=== PATIENT | female | born 1965 | race African-American/Black ===

== ENCOUNTER 2019-03-16 17:32 | Observation (INO) ==
[2019-03-16] MEDS ORDERED: CARDIZEM IV ONE (17:50)
[2019-03-16] MEDS ORDERED: CARDIZEM ONE (17:50)
[2019-03-16] MEDS ORDERED: NS 1,000 ML ONE (17:50)
[2019-03-16] MEDS ORDERED: NS 1,000 ML IV ONE ×3 (17:50→22:17)
--- NOTE | 2019-03-16 18:02 | PROVIDER DOCUMENTATION ---
HPI-Syncope/Dizziness - General Chief Complaint: Palpitations Stated Complaint: HEART RATE / BP / UP Time Seen by Provider: 03/16/19 17:59 Source: patient Allergies/Adverse Reactions: Patient Allergies Allergy/AdvReac Type Severity Reaction Status Date / Time metformin Allergy SWELLING Verified 06/26/18 18:27 Home Medications: Home Medication List Medication Instructions Recorded Confirmed Last Taken Type Amlodipine [Norvasc] 10 mg PO DAILY 07/07/14 06/26/18 06/26/18 06:00 History Allopurinol 1 tab PO DAILY 11/19/15 06/26/18 06/26/18 06:00 History Gabapentin 1 tab PO HS 11/19/15 06/26/18 06/26/18 06:00 History Losartan Potassium 1 tab PO DAILY 11/19/15 06/26/18 06/26/18 06:00 History Clonidine HCl 0.3 mg PO DAILY 06/02/18 06/26/18 06/26/18 06:00 History Digoxin 250 microgm PO DAILY 06/02/18 06/26/18 06/26/18 06:00 History Ergocalciferol (Vitamin D2) 50,000 unit PO DIRECTED 06/02/18 06/26/18 06/19/18 History [Vitamin D] Glimepiride 4 mg PO BID 06/02/18 06/26/18 06/26/18 06:00 History Senatobia-3 Fatty Acids/Fish Oil [Fish 1 each PO DAILY 06/02/18 06/26/18 06/26/18 06:00 History Oil 1,000 mg Capsule] Sitagliptin Phosphate [Januvia] 100 mg PO DAILY 06/02/18 06/26/18 06/26/18 06:00 History Hydralazine [Apresoline] 25 mg PO DAILY 06/26/18 06/26/18 06/26/18 06:00 History Omeprazole 1 tab PO DAILY 06/26/18 06/26/18 06/26/18 06:00 History Polyethylene Glycol 3350 [Miralax] 17 gm PO DAILY 06/26/18 06/26/18 06/26/18 06:00 History - History of Present Illness-Syncope/Dizzy Nature of Presenting Problem: pt c/o elevated HR and BP w/ dizziness and weakness onset today [employer]ERK [employer], pt has HX of tachycardia w/ recent lower dose of digoxin. no other sx reported at this time. Prior Episodes: reports: other (pt has chronic SVT) Onset/Duration: reports: just prior to arrival Timing: reports: still present Symptoms prior to episode: reports: lightheaded, racing heart, rapid heart beat Context: reports: felt faint Loss of Consciousness: no loss of consciousness Current Symptoms: reports: weakness, lightheaded, dizzy Recently Seen Here or By Another Healthcare Provider: No - Dizziness Severity in ED: reports: mild Dizziness Related Current/Associated Symptoms: reports: weakness, lightheaded (relieved now after return to NSR with controlled rate) Any recent trauma/injury?: reports: none Modifying Factors: improves with: nothing Review of Systems - Adult - REVIEW OF SYSTEMS - ADULT Constitutional: reports: no symptoms reported Eyes: reports: no symptoms reported Ears, Nose, Mouth & Throat: reports: no symptoms reported Cardiovascular: reports: see HPI Respiratory: reports: no symptoms reported Gastrointestinal: reports: no symptoms reported Genitourinary: reports: no symptoms reported Musculoskeletal: reports: no symptoms reported Integumentary: reports: no symptoms reported Neurological: reports: no symptoms reported Psychiatric: reports: no symptoms reported Endocrine: reports: no symptoms reported Hematologic/Lymphatic: reports: no symptoms reported Allergic/Immunologic: reports: no symptoms reported All Other Systems: Reviewed and Negative Past History - Adult - PAST MEDICAL HISTORY-ADULT Review of Records: reports: Old Records Reviewed, Nursing Assessment Review, Me dications Reviewed Major Childhood Illnesses: reports: denies history Cardiovascular: reports: arrhythmia (SVT), HTN, hyperlipidemia, [place] Respiratory: reports: denies history Gastrointestinal: reports: GERD, GI bleed Obstetrical/Gynecological: reports: denies history Genitourinary: reports: denies history Musculoskeletal: reports: denies history Neurological: reports: denies history Endocrine/Immune: reports: Diabetes Other Conditions: reports: denies history - PRIOR SURGERIES/PROCEDURES Surgical/Procedure History: reports: cholecystectomy, orthopedic (extremity) (left ankle), breast (reduction), other (breast reduction) - IMMUNIZATION STATUS Childhood Immunizations: See Nurse Assessment Flu Vaccine: See Nurse Assessment - FAMILY HISTORY Family History: CAD over 55 yo - SOCIAL HISTORY Smoking: denies Substance Use: none/never Alcohol Use Frequency: never Physical Exam-General - CONSTITUTIONAL General Appearance: appears well, alert, no apparent distress - EYES Eyes: PERRL/EOMI, pink conjunctivae. negative: anisocoria, photophobia, sclera injected - HEAD, EARS, NOSE, MOUTH & THROAT HENMT: normocephalic/atraumatic, moist mucous membranes, normal ENT inspection - NECK Neck: non-tender, full range of motion, supple - RESPIRATORY Respiratory: chest non-tender, lungs clear, normal breath sounds, no pleuratic chest pain, no respiratory distress, no accessory muscle use - CARDIOVASCULAR Cardiovascular: normal peripheral pulses, regular rate, rhythm, no edema, no gallop, no JVD, no murmur - GASTROINTESTINAL (ABDOMEN) Abdominal Exam: normal bowel sounds, non tender, soft - LYMPHATIC Lymphatic: no adenopathy - MUSCULOSKELETAL Back Exam: normal inspection Extremity: normal range of motion, non-tender, normal gait - SKIN Integumentary: normal color, normal turgor - NEUROLOGIC Neurologic: grossly normal, no motor/sensory deficits. negative: facial droop, focal weakness - PSYCHIATRIC Psych/Mental Status: normal mood/affect, normal thought content, normal thought process, oriented x 3 Progress - PLAN OF CARE/RESULTS Progress/Plan/Lab Results: Vital Signs - 8 hr 03/16/19 17:43 03/16/19 19:44 Temperature 98 F Pulse Rate 180 H 83 Respiratory Rate 25 H 12 Blood Pressure 119/99 145/100 O2 Sat by Pulse Oximetry 95 Laboratory Results - last 24 hr 03/16/19 03/16/19 03/16/19 18:35 18:35 18:35 WBC 8.52 RBC 3.32 L Hgb 9.9 L Hct 31.3 L MCV 94.3 MCH 29.8 MCHC 31.6 L RDW Std Deviation 15.1 H Plt Count 333 MPV 10.4 Immature Gran % (Auto) 0.2 Neut % (Auto) 60.6 Lymph % (Auto) 28.6 [place] % (Auto) 8.5 Eos % (Auto) 1.4 Baso % (Auto) 0.7 Immature Gran # (Auto) 0.02 Neut # (Auto) 5.16 Lymph # (Auto) 2.44 [place] # (Auto) 0.72 H Eos # (Auto) 0.12 Baso # (Auto) 0.06 Segmented Neutrophils Cancelled Band Neutrophils Cancelled Lymphocytes Cancelled Monocytes Cancelled Eosinophils Cancelled Basophils Cancelled Metamyelocytes Cancelled Myelocytes Cancelled Promyelocytes Cancelled Nucleated RBCs Cancelled Atypical Lymphocytes Cancelled Blast Cells Cancelled Hypochromia Cancelled Vacuolization Cancelled Toxic Granulation Cancelled Dohle Bodies Cancelled Large Platelets Cancelled Polychromasia Cancelled Poikilocytosis Cancelled Basophilic Stippling Cancelled Anisocytosis Cancelled Microcytosis Cancelled Macrocytosis Cancelled Spherocytes Cancelled Sickle Cells Cancelled Target Cells Cancelled Ovalocytes Cancelled Stomatocytes Cancelled [place] Bodies Cancelled Mario Cells Cancelled Unidentified Cells Cancelled Schistocytes Cancelled PT INR D-Dimer, Quantitative Sodium Potassium Chloride Carbon Dioxide Anion Gap BUN Creatinine Estimated GFR/1.73 m2 BUN/Creatinine Ratio Glucose Calculated Osmolality Calcium Magnesium Total Bilirubin AST ALT Alkaline Phosphatase Creatine Kinase 249 H Creatine Kinase Index 1.1 CK-MB (CK-2) 2.67 Troponin T 0.036 Total Protein Albumin Globulin Albumin/Globulin Ratio Digoxin 03/16/19 03/16/19 03/16/19 18:35 18:35 18:35 WBC RBC Hgb Hct MCV MCH MCHC RDW Std Deviation Plt Count MPV Immature Gran % (Auto) Neut % (Auto) Lymph % (Auto) [place] % (Auto) Eos % (Auto) Baso % (Auto) Immature Gran # (Auto) Neut # (Auto) Lymph # (Auto) [place] # (Auto) Eos # (Auto) Baso # (Auto) Segmented Neutrophils Band Neutrophils Lymphocytes Monocytes Eosinophils Basophils Metamyelocytes Myelocytes Promyelocytes Nucleated RBCs Atypical Lymphocytes Blast Cells Hypochromia Vacuolization Toxic Granulation Dohle Bodies Large Platelets Polychromasia Poikilocytosis Basophilic Stippling Anisocytosis Microcytosis Macrocytosis Spherocytes Sickle Cells Target Cells Ovalocytes Stomatocytes [place] Bodies Mario Cells Unidentified Cells Schistocytes PT INR D-Dimer, Quantitative 1.31 H Sodium 142 Potassium 4.0 Chloride 106 Carbon Dioxide 25 Anion Gap 12 BUN 26 H Creatinine 1.8 H Estimated GFR/1.73 m2 29 BUN/Creatinine Ratio 14 Glucose 111 H Calculated Osmolality 289 Calcium 9.1 Magnesium 1.7 Total Bilirubin 0.20 AST 26 ALT 26 Alkaline Phosphatase 95 Creatine Kinase Creatine Kinase Index CK-MB (CK-2) Troponin T Total Protein 7.8 Albumin 3.7 Globulin 4.0 Albumin/Globulin Ratio 1.0 Digoxin 1.5 03/16/19 18:35 WBC RBC Hgb Hct MCV MCH MCHC RDW Std Deviation Plt Count MPV Immature Gran % (Auto) Neut % (Auto) Lymph % (Auto) [place] % (Auto) Eos % (Auto) Baso % (Auto) Immature Gran # (Auto) Neut # (Auto) Lymph # (Auto) [place] # (Auto) Eos # (Auto) Baso # (Auto) Segmented Neutrophils Band Neutrophils Lymphocytes Monocytes Eosinophils Basophils Metamyelocytes Myelocytes Promyelocytes Nucleated RBCs Atypical Lymphocytes Blast Cells Hypochromia Vacuolization Toxic Granulation Dohle Bodies Large Platelets Polychromasia Poikilocytosis Basophilic Stippling Anisocytosis Microcytosis Macrocytosis Spherocytes Sickle Cells Target Cells Ovalocytes Stomatocytes [place] Bodies Mario Cells Unidentified Cells Schistocytes PT 13.6 INR 0.99 D-Dimer, Quantitative Sodium Potassium Chloride Carbon Dioxide Anion Gap BUN Creatinine Estimated GFR/1.73 m2 BUN/Creatinine Ratio Glucose Calculated Osmolality Calcium Magnesium Total Bilirubin AST ALT Alkaline Phosphatase Creatine Kinase Creatine Kinase Index CK-MB (CK-2) Troponin T Total Protein Albumin Globulin Albumin/Globulin Ratio Digoxin Orders Category Date Time Status Cardiac Monitoring DIRECTED Care 03/16/19 17:50 Active Oxygen Therapy- ED Nursing DIRECTED Care 03/16/19 17:50 Active Resuscitation Status Routine Care 03/16/19 20:51 Ordered Saline Loc DIRECTED Care 03/16/19 17:50 Active Saline Loc NOW Care 03/16/19 17:50 Active CHEST-PORTABLE [RAD] Stat Exams 03/16/19 17:50 Completed CBC WITH DIFF [HEME] Stat Lab 03/16/19 18:35 Completed CK PROFILE [SP CHEM] Stat Lab 03/16/19 18:35 Completed COMPREHENSIVE METABOLIC PANEL [CHEM] Stat Lab 03/16/19 18:35 Completed D-DIMER [COAG] Stat Lab 03/16/19 18:35 Completed DIGOXIN [TDM] Stat Lab 03/16/19 18:35 Completed MAGNESIUM [CHEM] Stat Lab 03/16/19 18:35 Completed PROTIME WITH INR [COAG] Stat Lab 03/16/19 18:35 Completed TROPONIN T Stat Lab 03/16/19 18:35 Completed TROPONIN T Stat Lab 03/16/19 20:32 Ordered 0.9% Sodium Chloride Inj [Ns] 1,000 ml Med 03/16/19 17:50 Discontinued .ROUTE As directed 0.9% Sodium Chloride Inj [Ns] 1,000 ml Med 03/16/19 17:50 Discontinued IV 999 mls/hr 0.9% Sodium Chloride Inj [Ns] 1,000 ml Med 03/16/19 18:01 Discontinued IV 999 mls/hr Diltiazem [Cardizem] Med 03/16/19 17:50 Discontinued 20 mg IV NOW ONE Diltiazem [Cardizem] Med 03/16/19 17:50 Discontinued 25 mg .ROUTE .STK-MED ONE Enoxaparin [Lovenox] Med 03/16/19 20:32 Discontinued 90 mg SUBQ NOW ONE Lorazepam [Ativan] Med 03/16/19 18:29 Discontinued 1 mg PO NOW ONE EKG [EKG] Stat Ther 03/16/19 17:50 Draft EKG [EKG] Stat Ther 03/16/19 18:39 Ordered EKG [EKG] Stat Ther 03/16/19 20:32 Ordered Transfer/Admit Order [TRANSFER] Routine Transfer 03/16/19 20:[address] Carmichael for admission @ 2038 Result Diagrams: 03/16/19 18:35 03/16/19 18:35 - REASSESSMENT Reassessment #1 Status: improving Reassessment Comment: pt feeling better , asymptomatic at this time Reassessment #2 Status: improving Reassessment Comment: pt asymptomatic at this time - EKG 1 Time of EKG reading by physician:: 17:47 EKG Read and Signed by:: Tulio Yuen EKG Interpretation (*Must complete 3 of following elements*): Abnormal Rate: 184 Rhythm: svt QRS: normal ST Wave: normal (pt in SVT) 2 Time of EKG reading by physician:: 21:08 EKG Read and Signed by:: Geoff Perera EKG Interpretation (*Must complete 3 of following elements*): Abnormal Rate: 77 (occasional PVC) Rhythm: NSR [place]: normal QRS: normal PA Interval: normal ST Wave: normal Prior EKG Comparison: changes noted - XRAY 1 XRAY Study: Chest Impression: Normal Comparison with other Films: no changes - CONSULTS/PCP/HOSPITALIST Notification #1 *Consult/PCP/Hospitalist*: Dr. carmichael Time Discussed: 20:49 Reason/Comments: admit to [facility] Consult Disposition: Admit Departure - Departure Date of Disposition Decision: 03/16/19 Time of Disposition Decision: 20:50 DIAGNOSIS: SVT (supraventricular tachycardia), Elevated d-dimer, COREY (acute kidney injury) Disposition: ADMITTED INPATIENT 09 Certified Medical Emergency: Emergent Condition: Stable Referrals and Follow-Ups: Ramona Sanchez [Primary Care Provider] - - Critical Care Note This patient required my direct & personal management of CC.: Yes Total Time (mins): 120 (SVT,) Critical Care Statement: This patient required my direct personal management to treat or rule out processes, the absence of which, could potentiallly result in sudden, clinically significant life or limb threatening deterioration. Attestation - Physician/ BRENDA Attestation Patient care was provided by Advanced Practice Provider:: Yes Advanced Practice Provider:: Rosita Hinton Advanced Practice Provider documentation review:: The Mid-level provider documentation, treatment plan and medical decision making was reviewed by the physician who agrees with all treatment and medical decision making by the MLP. The physician spent face to face time with patient:: No Advanced Practice Provider documentation review:: Supervising physician onsite and consulted in the evaluation and care of this patient. The physician did not have a face to face encounter with the patient.
--- NOTE | 2019-03-16 18:05 | EKG Report ---
Test Performed on : 03/16/2019 5:47:42 PM Test Reason : tachycardia Blood Pressure : / mmHG Vent. Rate : 184 BPM Atrial Rate : 174 BPM P-R Int : 000 ms QRS Dur : 074 ms QT Int : 246 ms P-R-T Axes : 000 -30 123 degrees QTc Int : 430 ms Supraventricular tachycardia. Left axis deviation Nonspecific ST and T wave abnormality Abnormal ECG When compared with ECG of 14-JAN-2019 13:09, (Unconfirmed) Vent. rate has increased BY [address] now depressed in Inferior leads ST now depressed in Lateral leads Unconfirmed Result
--- NOTE | 2019-03-16 18:18 | Diag Imaging Result Doc PS360 ---
EXAM: CHEST-PORTABLE 03/16/2019 HISTORY: tachycardia TECHNIQUE: Erect AP portable at 0620 COMMENT: There is a platelike opacity in the lingula which has not changed since 01/14/2019 and is probably fibrotic. Otherwise considering differences in technique there has been no significant change. IMPRESSION: No acute disease. Electronically signed by Truong Hightower 03/16/2019 6:15 PM
[2019-03-16] MEDS ORDERED: ATIVAN PO ONE (18:29)
[2019-03-16 19:25] LABS: ALBUMIN 3.7 g/dL (3.5-5.0); CALCIUM 9.1 mg/dL (8.8-10.2); CREATININE 1.8 mg/dL (0.5-0.9); MAGNESIUM 1.7 mg/dL (1.5-2.7); TOTAL BILIRUBIN 0.2 mg/dL (0.20-1.00); TOTAL PROTEIN 7.8 g/dL (6.3-8.3)
[2019-03-16 19:45] LABS: INR 0.99; PROTIME 13.6 Seconds (11.0-16.0)
[2019-03-16 19:59] LABS: BASO# 0.06 X1000 (0.0-0.2); BASO% 0.7 % (0.0-0.8); EOS# 0.12 X1000 (0.0-0.7); EOS% 1.4 % (0.0-10.0); HEMATOCRIT 31.3 % (37.0-47.0); HEMOGLOBIN 9.9 g/dL (12.0-16.0); IMM GRAN# 0.02 X1000 (0.0-0.04); IMM GRAN% 0.2 % (0.0-0.5); LYMPH# 2.44 X1000 (1.2-3.4); LYMPH% 28.6 % (20.5-51.1); MCH 29.8 PG (27-31); MCHC 31.6 g/dL (33-37); MCV 94.3 FL (81-99); MONO# 0.72 X1000 (0.11-0.59); MONO% 8.5 % (1.7-9.3); MPV 10.4 FL (7.4-10.4); NEUT# 5.16 X1000 (1.4-6.5); NEUT% 60.6 % (42.2-75.2); PLT 333 X1000 (130-400); RBC 3.32 XMIL (4.2-5.4); RDW 15.1 % (11.5-14.5); WBC 8.52 X1000 (4.8-10.8)
[2019-03-16 20:00] LABS: CK INDEX 1.1 (0.0-2.5); CK-MB 2.67 ng/mL (0.0-5.0)
[2019-03-16] MEDS ORDERED: LOVENOX SUBQ ONE (20:32)
[2019-03-16] MEDS ORDERED: ZOFRAN IV PRN (22:17)
--- NOTE | 2019-03-16 23:56 | EKG Report ---
Test Performed on : 03/16/2019 9:03:33 PM Test Reason : CP Blood Pressure : / mmHG Vent. Rate : 077 BPM Atrial Rate : 077 BPM P-R Int : 200 ms QRS Dur : 082 ms QT Int : 356 ms P-R-T Axes : 039 -18 083 degrees QTc Int : 402 ms Sinus rhythm. with occasional premature ventricular complexes. Otherwise normal ECG When compared with ECG of 16-MAR-2019 17:47, (Unconfirmed) premature ventricular complexes. are now present Vent. rate has decreased BY [address] no longer depressed in Inferior leads ST no longer depressed in Lateral leads Unconfirmed Result
[2019-03-17] MEDS ORDERED: TYLENOL PO PRN (00:54)
[2019-03-17 07:18] VITALS: BP 169/98
--- NOTE | 2019-03-17 07:19 | EKG Report ---
Test Performed on : 03/17/2019 06:44:38 AM Test Reason : 6 beats of vtach Blood Pressure : / mmHG Vent. Rate : 092 BPM Atrial Rate : 092 BPM P-R Int : 206 ms QRS Dur : 082 ms QT Int : 350 ms P-R-T Axes : 061 -10 085 degrees QTc Int : 432 ms Normal sinus rhythm. Nonspecific T wave abnormality Abnormal ECG When compared with ECG of 16-MAR-2019 21:03, (Unconfirmed) premature ventricular complexes. are no longer present T wave amplitude has increased in Inferior leads Unconfirmed Result
[2019-03-17] MEDS ORDERED: LOVENOX SUBQ SCH (08:00)
[2019-03-17 09:05] LABS: HEMATOCRIT 28.3 % (37.0-47.0); HEMOGLOBIN 8.8 g/dL (12.0-16.0); MCH 29.6 PG (27-31); MCHC 31.1 g/dL (33-37); MCV 95.3 FL (81-99); MPV 10.3 FL (7.4-10.4); RBC 2.97 XMIL (4.2-5.4); RDW 15.1 % (11.5-14.5); WBC 7.08 X1000 (4.8-10.8)
[2019-03-17 09:12] LABS: AGAP 12; ALBUMIN 3.4 g/dL (3.5-5.0); ALKALINE PHOSPHATASE 87 U/L (32-104); BUN 23 mg/dL (8-22); CALCIUM 8.6 mg/dL (8.8-10.2); CHLORIDE 110 mmol/L (98-107); COSMO 290; CREATININE 1.5 mg/dL (0.5-0.9); ESTIMATED GFR 36; GLUCOSE 95 mg/dL (70-104); GOT 20 U/L (10-30); GPT 22 U/L (10-36); MAGNESIUM 1.7 mg/dL (1.5-2.7); POTASSIUM 3.9 mmol/L (3.5-5.1); SODIUM 144 mmol/L (136-145); TCO2 22 mmol/L (25-35); TOTAL BILIRUBIN < 0.15 mg/dL (0.20-1.00); TOTAL PROTEIN 6.6 g/dL (6.3-8.3)
[2019-03-17] MEDS ORDERED: MIRALAX PO PRN (10:05)
[2019-03-17] MEDS ORDERED: CATAPRES PO SCH (10:15)
[2019-03-17] MEDS ORDERED: CARDIZEM CD PO SCH (10:15)
[2019-03-17] MEDS ORDERED: LANOXIN PO SCH (10:15)
--- NOTE | 2019-03-17 15:20 | HISTORY AND PHYSICAL ---
CHIEF COMPLAINT: Palpitations. HISTORY OF PRESENT ILLNESS: The patient is a 54-year-old female who presented to the hospital complaining of palpitations. Stated that she felt that her heart was racing at times. 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 This was approximately 2 to 3 months ago. States that she has checked her heart rate at home, and felt as though the rate was normal, but she was feeling lightheaded and dizzy when the palpitations would occur. ALLERGIES: Metformin causing swelling. MEDICATIONS: Norvasc 10, amlodipine 1, gabapentin, losartan 100, clonidine 0.1 daily, digoxin, glimepiride, and Januvia. PAST MEDICAL HISTORY: History of atrial fibrillation, diabetes, hypertension, gout, and chronic neuropathy, as well as chronic reflux. She has had a GI bleed in the past. Does have a history of [place], hyperlipidemia. She has had a cholecystectomy, orthopedic surgery on her left ankle. She has had breast reduction surgery. REVIEW OF SYSTEMS: As noted above. Complains of palpitations, skipped heartbeats. Complains of lightheadedness, dizziness. Denies any chest pain currently. Denies any fevers, chills. Denies dysuria, frequency, urgency. Denies hesitancy, polyuria, or polydipsia. Denies any skin rashes, weight loss, or weight gain. FAMILY HISTORY: Does have a family history of coronary artery disease. SOCIAL HISTORY: The patient denies smoking. Does not drink. She is employed. PHYSICAL EXAMINATION: VITAL SIGNS: Reviewed and stable. Heart rate 80s, blood pressure stable GENERAL: She is awake, alert, oriented. The patient is in no current respiratory distress. Very pleasant to talk with. HEENT: Normocephalic. NECK: Supple. CARDIOVASCULAR: Appears regular rate. No murmurs. No gallops or rubs. CHEST: Clear, nonlabored. No wheezing. ABDOMEN: Soft, nondistended. EXTREMITIES: Moves all extremities. NEUROLOGIC: No focal neurological changes. SKIN: Warm, dry. No rashes. ASSESSMENT: 1. Palpitations. The patient's heart rate appears regular rhythm and rate controlled. 2. Known history of coronary artery disease. 3. Hypertension. 4. Diabetes. 5. Neuropathy. 6. Others. PLAN: Will continue to admit the patient to the hospital. Rule out [place]. Follow her heart rate and rhythm. Place her on telemetry. Follow her blood sugars, blood pressures, and hopefully home over the next 1 or 2 days. The patient was seen and examined by myself in the ER on the date of admission. cc: Agustín Carmichael MD
[2019-03-17] MEDS ORDERED: AMARYL PO SCH (17:00)
[2019-03-17] MEDS ORDERED: LANTUS INSULIN SUBQ SCH (21:00)
[2019-03-17] MEDS ORDERED: LIPITOR PO SCH (21:00)
[2019-03-17] MEDS ORDERED: ZYRTEC PO SCH (21:00)
--- NOTE | 2019-03-18 03:56 | DISCHARGE SUMMARY ---
ADMISSION DATE: 03/16/2019 DISCHARGE DATE: 03/17/2019 DISCHARGE DIAGNOSIS: 1. Elevated D-dimer. 2. Palpitations. 3. Diabetes. 4. High cholesterol. 5. Hypertension. 6. Known history of coronary artery disease. 7. Known neuropathy. CONSULTATIONS: None. PROCEDURES: None. BRIEF HOSPITAL COURSE: The patient is a 54-year-old female who presented to the hospital, treated in the usual fashion, placed on telemetry. Thankfully, she had an uneventful hospital course. On discharge, she is awake, alert. She is in no distress. She did have an elevated D-dimer and we certainly would have preferred her to stay in-house for an ultrasound although she declined. She has an elevated creatinine which has improved. She has acute on chronic renal failure. Creatinine has dropped from 1.8 down to 1.5, but the GFR still is at 35% and too low for her to undergo a CT scan. She will need to have a V/Q scan although currently she is having no respiratory difficulties. No chest pain. No hypoxic issues. Therefore, we will let her go home and follow this up as an outpatient. DISPOSITION: Patient will be discharged home. No changes made on her home medications as noted by her discharge medication list. Discussed with her how to deal with palpitations as I feel as though these are more subjective than true racing heart. We will discharge her home. She will follow up outpatient with treatment facility of choice. Greater than 30 minutes was spent in total care. cc: Agustín Carmichael MD
[2019-03-18] MEDS ORDERED: PRILOSEC PO SCH (06:00)
[2019-03-18] MEDS ORDERED: COZAAR PO SCH (09:00)
[2019-03-18] MEDS ORDERED: ZYLOPRIM PO SCH (09:00)
[2019-03-18] MEDS ORDERED: FISH OIL CONCENTRATE PO SCH (09:00)
[2019-03-18] MEDS ORDERED: NORVASC PO SCH (09:00)
[2019-03-18] MEDS ORDERED: JANUVIA PO SCH (09:00)
[2019-03-18] MEDS ORDERED: VITAMIN D PO SCH (09:00)
== END 2019-03-17 13:02 | disposition home or self-care (01) ==
LOC: P.ED 17:32 → P.MEDSURG 21:46 → INTOOBSV 21:46 → P.MEDSURG 22:18
PROVIDERS: ATTEND Family Medicine
CPT/HCPCS: 71010; 71045; 80053; 80162; 82550; 82553; 82948; 83735; 84443; 84484; 85025; 85027; 85379; 85610; 93005; 93970; 96372; 96374; 99285; 99291; A9270; J1650; J7030; XXXXX

== ENCOUNTER 2019-06-16 13:30 | Inpatient (IN) ==
[2019-06-16] MEDS ORDERED: ASPIRIN PO ONE (13:37)
[2019-06-16 14:20] LABS: INR 1.06; PROTIME 14.3 Seconds (11.0-16.0); PTT 27.5 Seconds (22.3-41.8)
--- NOTE | 2019-06-16 14:26 | EKG Report ---
Test Performed on : 06/16/2019 1:38:54 PM Test Reason : chest pain Blood Pressure : / mmHG Vent. Rate : 090 BPM Atrial Rate : 090 BPM P-R Int : 184 ms QRS Dur : 088 ms QT Int : 392 ms P-R-T Axes : 051 -15 086 degrees QTc Int : 479 ms Sinus rhythm. with occasional premature ventricular complexes. Possible Left atrial enlargement Cannot rule out Anterior infarct , age undetermined Abnormal ECG When compared with ECG of 17-MAR-2019 06:44, premature ventricular complexes. are now present Unconfirmed Result
[2019-06-16 14:38] LABS: ALBUMIN 3.8 g/dL (3.5-5.0); CALCIUM 8.5 mg/dL (8.8-10.2); CREATININE 2.4 mg/dL (0.5-0.9); POTASSIUM 3.8 mmol/L (3.5-5.1); TOTAL BILIRUBIN 0.2 mg/dL (0.20-1.00); TOTAL PROTEIN 6.8 g/dL (6.3-8.3)
[2019-06-16 14:45] LABS: BASO# 0.06 X1000 (0.0-0.2); BASO% 0.7 % (0.0-0.8); EOS# 0.12 X1000 (0.0-0.7); EOS% 1.3 % (0.0-10.0); HEMOGLOBIN 10.2 g/dL (12.0-16.0); IMM GRAN# 0.03 X1000 (0.0-0.04); IMM GRAN% 0.3 % (0.0-0.5); LYMPH# 2.21 X1000 (1.2-3.4); MCHC 31.9 g/dL (33-37); MCV 90.9 FL (81-99); MONO# 0.93 X1000 (0.11-0.59); MONO% 10.1 % (1.7-9.3); MPV 9.9 FL (7.4-10.4); NEUT# 5.85 X1000 (1.4-6.5); NEUT% 63.6 % (42.2-75.2); PLT 478 X1000 (130-400); RBC 3.52 XMIL (4.2-5.4); RDW 17.6 % (11.5-14.5)
[2019-06-16 14:47] LABS: EOS 1 % (1-10); LYMPHS 27 % (21-51); MONO 10 % (1-9); SEGS 62 % (42-75)
--- NOTE | 2019-06-16 15:31 | Diag Imaging Result Doc PS360 ---
CHEST-2 VIEWS - 06/16/2019 INDICATION: CP COMPARISON: 03/16/2019 FINDINGS: There is mild cardiomegaly. Pulmonary vascularity is indistinct. There are some increased markings in the lung bases. These are nonspecific and suggests pulmonary edema. No pneumothorax or pleural effusion. IMPRESSION: Cardiomegaly. Mild indistinct markings in the lung bases which may represent mild interstitial pulmonary edema. Electronically signed by Bahman Moreno 06/16/2019 3:29 PM
[2019-06-16] MEDS ORDERED: G.I. COCKTAIL PO ONE ×2 (15:42→15:43)
--- NOTE | 2019-06-16 16:04 | PROVIDER DOCUMENTATION ---
This chart was entered by Jovita Storm Scribe, acting as scribe for Binh Rubi MD. HPI-Chest Pain - General Chief Complaint: Chest Pain Stated Complaint: CHEST PAINS Time Seen by Provider: 06/16/19 13:53 Source: patient Allergies/Adverse Reactions: Patient Allergies Allergy/AdvReac Type Severity Reaction Status Date / Time metformin Allergy SWELLING Verified 06/26/18 18:27 Home Medications: Home Medication List Medication Instructions Recorded Confirmed Last Taken Type Amlodipine [Norvasc] 10 mg PO DAILY 07/07/14 03/17/19 06/26/18 06:00 History Allopurinol 1 tab PO DAILY 11/19/15 03/17/19 06/26/18 06:00 History Losartan Potassium 1 tab PO DAILY 11/19/15 03/17/19 06/26/18 06:00 History Digoxin 125 microgm PO DAILY 06/02/18 03/17/19 06/26/18 06:00 History Ergocalciferol (Vitamin D2) 50,000 unit PO DIRECTED 06/02/18 03/17/19 03/11/19 History [Vitamin D] Glimepiride 4 mg PO BID 06/02/18 03/17/19 06/26/18 06:00 History [place]-3 Fatty Acids/Fish Oil [Fish 1 each PO DAILY 06/02/18 03/17/19 06/26/18 06:00 History Oil 1,000 mg Capsule] Sitagliptin Phosphate [Januvia] 100 mg PO DAILY 06/02/18 03/17/19 06/26/18 06:00 History Omeprazole 1 tab PO DAILY@0600 06/26/18 03/17/19 06/26/18 06:00 History Polyethylene Glycol 3350 [Miralax] 17 gm PO DAILY PRN PRN 06/26/18 03/17/19 06/26/18 06:00 History Atorvastatin Calcium [Lipitor] 20 mg PO QHS 03/17/19 03/17/19 Unknown History Cetirizine HCl 1 tab PO QHS 03/17/19 03/17/19 Unknown History Clonidine HCl 0.1 mg PO DAILY 03/17/19 03/17/19 Unknown History Diltiazem HCl [Diltiazem 24Hr ER] 180 mg PO DAILY 03/17/19 03/17/19 Unknown History Insulin Glargine [Basaglar] 35 units SQ BID 03/17/19 03/17/19 Unknown History - History of Present Illness-CP Nature of Presenting Problem: 54 y/o female presents to ED with sternal chest pain, SOB, weakness, nausea, and dizziness onset this morning. Pt also complains of generalized abdominal pain. Pt reports she was seen in ED for same on Monday in [place] and dx with bronchitis. Pt is alert and oriented. Location: reports: central Chest Pain Radiation: reports: no radiation Quality of Pain: reports: sharp Severity in ED: mild, moderate Onset/Duration: this morning Timing: still present Context/Activities at Onset: reports: none Modifying Factors: improves with: nothing Associated Symptoms: reports: abdominal pain, dizziness, nausea, shortness of breath, weakness Nitro Today/Relief: no nitro taken today Aspirin Treatment Today: 325 mg x 1, provided by ED Prior Chest Pain/Cardiac Workup: reports: heart attack Similar Symptoms Previously?: No Recently Seen Here or By Another Healthcare Provider: No Review of Systems - Adult - REVIEW OF SYSTEMS - ADULT Constitutional: denies: chills, fever Eyes: reports: no symptoms reported Ears, Nose, Mouth & Throat: reports: no symptoms reported Cardiovascular: reports: chest pain. denies: palpitations Respiratory: reports: shortness of breath. denies: cough Gastrointestinal: reports: abdominal pain, nausea. denies: diarrhea, vomiting Genitourinary: reports: no symptoms reported Musculoskeletal: denies: back pain, joint pain Integumentary: reports: no symptoms reported Neurological: reports: dizziness/vertigo, other (weakness). denies: seizure Psychiatric: reports: no symptoms reported Endocrine: reports: no symptoms reported Hematologic/Lymphatic: reports: no symptoms reported Allergic/Immunologic: reports: no symptoms reported All Other Systems: Reviewed and Negative Past History - Adult - PAST MEDICAL HISTORY-ADULT Review of Records: reports: Old Records Reviewed, Nursing Assessment Review, Medications Reviewed Major Childhood Illnesses: reports: denies history Cardiovascular: reports: arrhythmia (SVT), HTN, hyperlipidemia, DE Respiratory: reports: denies history Gastrointestinal: reports: GERD, GI bleed Obstetrical/Gynecological: reports: denies history Genitourinary: reports: denies history Musculoskeletal: reports: denies history Neurological: reports: denies history Endocrine/Immune: reports: Diabetes Other Conditions: reports: denies history - PRIOR SURGERIES/PROCEDURES Surgical/Procedure History: reports: cholecystectomy, orthopedic (extremity) (left ankle), breast (reduction) - IMMUNIZATION STATUS Childhood Immunizations: See Nurse Assessment Flu Vaccine: See Nurse Assessment - FAMILY HISTORY Family History: CAD over 55 yo - SOCIAL HISTORY Smoking: quit less than 1 year Substance Use: none/never Alcohol Use Frequency: occasionally Living Situation: family Physical Exam-General - PHYSICAL EXAM-ADULT Initial Vital Signs Reviewed: Yes (blood pressure 149/104 on monitor) - CONSTITUTIONAL General Appearance: appears well, alert, no apparent distress - EYES Eyes: PERRL/EOMI, pink conjunctivae - HEAD, EARS, NOSE, MOUTH & THROAT HENMT: normocephalic/atraumatic, moist mucous membranes, normal ENT inspection - NECK Neck: non-tender, full range of motion - RESPIRATORY Respiratory: chest non-tender, lungs clear, normal breath sounds - CARDIOVASCULAR Cardiovascular: normal peripheral pulses, regular rate, rhythm - GASTROINTESTINAL (ABDOMEN) Abdominal Exam: normal bowel sounds, non tender, soft - MUSCULOSKELETAL Back Exam: normal inspection, no CVA tenderness, no vertebral tenderness Extremity: normal range of motion, non-tender - SKIN Integumentary: normal color, warm/dry - NEUROLOGIC Neurologic: grossly normal - PSYCHIATRIC Psych/Mental Status: normal mood/affect, normal thought content, normal thought process, oriented x 3 - HEART Score HEART Score: History: Moderately Suspicious HEART Score: ECG: Non-Specific Repolarization Disturbance/LBBB/PM HEART Score: Age: 45-65 Years HEART Score: Risk Factors for Atherosclerotic Disease: > or = 3 Risk Factors or History of Atherosclerotic Disease HEART Score: Troponin: < or = Normal Limit Total HEART Score:: 5 Progress - PLAN OF CARE/RESULTS Progress/Plan/Lab Results: Vital Signs - 8 hr 06/16/19 13:33 06/16/19 16:58 Temperature 97.8 F Pulse Rate 87 Respiratory Rate 22 Blood Pressure 150/114 160/110 O2 Sat by Pulse Oximetry 96 Laboratory Results - last 24 hr 06/16/19 06/16/19 06/16/19 13:30 13:30 13:30 WBC 9.20 RBC 3.52 L Hgb 10.2 L Hct 32.0 L MCV 90.9 MCH 29.0 MCHC 31.9 L RDW Std Deviation 17.6 H Plt Count 478 H MPV 9.9 Immature Gran % (Auto) 0.3 Neut % (Auto) 63.6 Lymph % (Auto) 24.0 [place] % (Auto) 10.1 H Eos % (Auto) 1.3 Baso % (Auto) 0.7 Immature Gran # (Auto) 0.03 Neut # (Auto) 5.85 Lymph # (Auto) 2.21 [place] # (Auto) 0.93 H Eos # (Auto) 0.12 Baso # (Auto) 0.06 Segmented Neutrophils 62 Lymphocytes 27 Monocytes 10 H Eosinophils 1 PT INR PTT (Actin FS) Sodium Potassium Chloride Carbon Dioxide Anion Gap BUN Creatinine Estimated GFR/1.73 m2 BUN/Creatinine Ratio Glucose Calculated Osmolality Calcium Total Bilirubin AST ALT Alkaline Phosphatase Creatine Kinase 157 Troponin T 0.041 Ihk-W-Vxnlnurldxs Pept Total Protein Albumin Globulin Albumin/Globulin Ratio 06/16/19 06/16/19 06/16/19 13:30 13:30 13:30 WBC RBC Hgb Hct MCV MCH MCHC RDW Std Deviation Plt Count MPV Immature Gran % (Auto) Neut % (Auto) Lymph % (Auto) [place] % (Auto) Eos % (Auto) Baso % (Auto) Immature Gran # (Auto) Neut # (Auto) Lymph # (Auto) [place] # (Auto) Eos # (Auto) Baso # (Auto) Segmented Neutrophils Lymphocytes Monocytes Eosinophils PT 14.3 INR 1.06 PTT (Actin FS) 27.5 Sodium 144 Potassium 3.8 Chloride 109 H Carbon Dioxide 23 L Anion Gap 12 BUN 59 H Creatinine 2.4 H Estimated GFR/1.73 m2 21 BUN/Creatinine Ratio 25 Glucose 58 L Calculated Osmolality 301 Calcium 8.5 L Total Bilirubin 0.20 AST 122 H ALT 98 H Alkaline Phosphatase 39 Creatine Kinase Troponin T Qir-X-Owjofnttcgy Pept 53507 H Total Protein 6.8 Albumin 3.8 Globulin 3.0 Albumin/Globulin Ratio 1.0 06/16/19 06/16/19 15:51 15:51 WBC RBC Hgb Hct MCV MCH MCHC RDW Std Deviation Plt Count MPV Immature Gran % (Auto) Neut % (Auto) Lymph % (Auto) [place] % (Auto) Eos % (Auto) Baso % (Auto) Immature Gran # (Auto) Neut # (Auto) Lymph # (Auto) [place] # (Auto) Eos # (Auto) Baso # (Auto) Segmented Neutrophils Lymphocytes Monocytes Eosinophils PT INR PTT (Actin FS) Sodium Potassium Chloride Carbon Dioxide Anion Gap BUN Creatinine Estimated GFR/1.73 m2 BUN/Creatinine Ratio Glucose Calculated Osmolality Calcium Total Bilirubin AST ALT Alkaline Phosphatase Creatine Kinase 128 Troponin T 0.035 Sed-T-Wpxwtwkbqvm Pept Total Protein Albumin Globulin Albumin/Globulin Ratio Orders Category Date Time Status Cardiac Monitoring DIRECTED Care 06/16/19 13:37 Active Oxygen Therapy- ED Nursing DIRECTED Care 06/16/19 13:37 Active Saline Loc NOW Care 06/16/19 13:37 Active CHEST-2 VIEWS [RAD] Stat Exams 06/16/19 13:37 Completed CBC WITH DIFF [HEME] Stat Lab 06/16/19 13:30 Completed CK PROFILE [SP CHEM] Stat Lab 06/16/19 13:30 Completed CK PROFILE [SP CHEM] Stat Lab 06/16/19 15:51 Completed CK PROFILE [SP CHEM] Stat Lab 06/16/19 17:03 Ordered COMPREHENSIVE METABOLIC PANEL [CHEM] Stat Lab 06/16/19 13:30 Completed PRO B-NATRIURETIC PEPTIDE Stat Lab 06/16/19 13:30 Completed PROTIME WITH INR [COAG] Stat Lab 06/16/19 13:30 Completed PTT [COAG] Stat Lab 06/16/19 13:30 Completed TROPONIN T Stat Lab 06/16/19 13:30 Completed TROPONIN T Stat Lab 06/16/19 15:51 Completed TROPONIN T Stat Lab 06/16/19 17:03 Ordered Aspirin Med 06/16/19 13:37 Discontinued 325 mg PO NOW ONE Clonidine [Catapres] Med 06/16/19 17:10 Discontinued 0.1 mg PO NOW ONE Clonidine [Catapres] Med 06/16/19 17:13 Discontinued 0.1 mg PO NOW ONE [place]/Al&mg Hydrox [G.i. Cocktail] Med 06/16/19 15:42 Discontinued 30 ml PO NOW ONE [place]/Al&mg Hydrox [G.i. Cocktail] Med 06/16/19 15:43 Discontinued 30 ml PO NOW ONE CP/SOB/Palp >45 yrs of Age Stat Oth 06/16/19 13:37 Ordered EKG [EKG] Stat Ther 06/16/19 13:37 Ordered EKG [EKG] Stat Ther 06/16/19 13:38 Draft EKG [EKG] Stat Ther 06/16/19 15:31 Draft EKG [EKG] Stat Ther 06/16/19 17:03 Ordered Result Diagrams: 06/16/19 13:30 06/16/19 13:30 - EKG 1 Time of EKG reading by physician:: 13:38 EKG Read and Signed by:: Binh Rubi EKG Interpretation (*Must complete 3 of following elements*): Abnormal Rate: 90 Rhythm: Sinus with occasional PVCs [place]idan: normal QRS: poor R wave progression, PVC's, other (possible L atrial enlargement; cannot rule out anterior infarct) NV Interval: normal ST Wave: normal 2 Time of EKG reading by physician:: 15:54 EKG Read and Signed by:: Binh Rubi EKG Interpretation (*Must complete 3 of following elements*): Abnormal Rate: 83 Rhythm: Sinus with occasional PVCs [place]idan: normal QRS: PVC's, other (possible L atrial enlargement; cannot rule out anterior infarct) NV Interval: normal ST Wave: normal - XRAY 1 XRAY Study: Chest Impression: See EMR Report ([facility] - [address] [place] [address], [address] [place] [id number] [facility] - [address] [place] [address] Department of Imaging Patient: YONATHAN GOLDMAN Date: 06/16/19#: [id number] : 1965ADM Status: REG ERAcct#: [id number] Age/Sex: 54/FRoom/Bed: Loc: P.ED Ordering Physician: Binh Rubi MD Family Physician: Ramona Sanchez Reason for Procedure: CP Signed CHEST-2 VIEWS - 06/16/2019 INDICATION: CP COMPARISON: 03/16/2019 FINDINGS: There is mild cardiomegaly. Pulmonary vascularity is indistinct. There are some increased markings in the lung bases. These are nonspecific and suggests pulmonary edema. No pneumothorax or pleural effusion. IMPRESSION: Cardiomegaly. Mild indistinct markings in the lung bases which may represent mild interstitial pulmonary edema. Electronically signed by Bahman Moreno 06/16/2019 3:29 PM 06/16/19 1529 Interpreting Physician: Bahman Moreno MD Dictated Date/Time: 06/16/19 1528 cc: Binh Rubi MD; Ramona Sanchez) - CONSULTS/PCP/HOSPITALIST Notification #1 *Consult/PCP/Hospitalist*: Dr. Carmichael Time Discussed: 17:07 Reason/Comments: CHF; dehydration Consult Disposition: Admit Departure - Departure Date of Disposition Decision: 06/16/19 Time of Disposition Decision: 17:07 DIAGNOSIS: Dehydration, Prerenal azotemia CHF (congestive heart failure) Qualifiers: Heart failure type: unspecified Heart failure chronicity: chronic Qualified Code(s): I50.9 - Heart failure, unspecified HTN (hypertension) Qualifiers: Hypertension type: unspecified Qualified Code(s): I10 - Essential (primary) hypertension Disposition: ADMITTED INPATIENT 09 Certified Medical Emergency: Emergent Condition: Stable Referrals and Follow-Ups: Ramona Sanchez [Primary Care Provider] - - Critical Care Note This patient required my direct & personal management of CC.: No Attestation - Physician/ BRENDA Attestation Patient care was provided by Advanced Practice Provider:: No The physician spent face to face time with patient:: Yes Advanced Practice Provider documentation review:: Supervising physician onsite and consulted in the evaluation and care of this patient. The physician did have a face to face encounter with the patient. This chart was documented by the indicated scribe, (Jovita Storm Scribe) and accurately reflects the services I performed and decisions made by me, Binh Rubi MD, as attested by the provider's signature.
[2019-06-16] MEDS ORDERED: CATAPRES PO ONE ×2 (17:10→17:13)
--- NOTE | 2019-06-16 17:30 | EKG Report ---
Test Performed on : 06/16/2019 3:54:06 PM Test Reason : REPEAT Blood Pressure : / mmHG Vent. Rate : 083 BPM Atrial Rate : 083 BPM P-R Int : 184 ms QRS Dur : 090 ms QT Int : 396 ms P-R-T Axes : 053 -11 080 degrees QTc Int : 465 ms Sinus rhythm. with occasional premature ventricular complexes. Possible Left atrial enlargement Cannot rule out Anterior infarct (cited on or before 16-JUN-2019) Abnormal ECG When compared with ECG of 16-JUN-2019 13:38, (Unconfirmed) No significant change was found Unconfirmed Result
[2019-06-16] MEDS ORDERED: NS 1,000 ML IV ONE (17:54)
[2019-06-16] MEDS ORDERED: APRESOLINE IV ONE (17:58)
[2019-06-16] MEDS: CARDENE 20 MG/NS 20 MG/200 ML PIGGYBACK IV SCH ×2 (22:39→23:06)
[2019-06-17 14:06] LABS: BASO# 0.04 X1000 (0.0-0.2); BASO% 0.5 % (0.0-0.8); EOS# 0.11 X1000 (0.0-0.7); EOS% 1.2 % (0.0-10.0); HEMATOCRIT 34.6 % (37.0-47.0); HEMOGLOBIN 11.2 g/dL (12.0-16.0); IMM GRAN# 0.02 X1000 (0.0-0.04); IMM GRAN% 0.2 % (0.0-0.5); LYMPH# 1.77 X1000 (1.2-3.4); MCH 29.2 PG (27-31); MCHC 32.4 g/dL (33-37); MCV 90.1 FL (81-99); MONO# 0.72 X1000 (0.11-0.59); MONO% 8.1 % (1.7-9.3); MPV 9.8 FL (7.4-10.4); NEUT# 6.21 X1000 (1.4-6.5); PLT 507 X1000 (130-400); RBC 3.84 XMIL (4.2-5.4); RDW 17.5 % (11.5-14.5); WBC 8.87 X1000 (4.8-10.8)
[2019-06-17] MEDS: CARDENE 20 MG/NS 20 MG/200 ML PIGGYBACK IV SCH (14:07)
[2019-06-17 14:28] LABS: CREATININE 1.9 mg/dL (0.5-0.9); POTASSIUM 3.7 mmol/L (3.5-5.1)
[2019-06-17 14:29] LABS: ALBUMIN 3.7 g/dL (3.5-5.0); TOTAL BILIRUBIN 0.3 mg/dL (0.20-1.00); TOTAL PROTEIN 7.3 g/dL (6.3-8.3)
[2019-06-17] MEDS: HUMALOG (PARKWAY) SUBQ SCH ×2 (16:56→20:03)
[2019-06-17] MEDS: NEURONTIN PO SCH ×2 (16:56→20:02)
--- NOTE | 2019-06-17 17:28 | EKG Report ---
Test Performed on : 06/17/2019 5:17:37 PM Test Reason : run of [employer] Blood Pressure : / mmHG Vent. Rate : 095 BPM Atrial Rate : 095 BPM P-R Int : 176 ms QRS Dur : 088 ms QT Int : 392 ms P-R-T Axes : 067 -21 081 degrees QTc Int : 492 ms Normal sinus rhythm. Possible Left atrial enlargement Nonspecific T wave abnormality Prolonged QT Abnormal ECG When compared with ECG of 16-JUN-2019 15:54, (Unconfirmed) premature ventricular complexes. are no longer present Confirmed by Binh Rubi MD ([id number]) on 07/04/2019 3:29:20 PM
[2019-06-17] MEDS ORDERED: CARDIZEM IV ONE (19:10)
[2019-06-17] MEDS ORDERED: CARDIZEM 125 MG/D5W 125 MG/125 ML IVPB IV SCH (19:15)
--- NOTE | 2019-06-17 19:26 | HISTORY AND PHYSICAL ---
CHIEF COMPLAINT: Chest pain. HISTORY OF PRESENT ILLNESS: This is a 54-year-old female with a history of atrial fibrillation, diabetes mellitus, hypertension who presented to the emergency room complaining of chest pain. She described this as a sharp chest pain that is substernal that is accompanied by some nausea, weakness and shortness of breath. She states she was evaluated in [place], [place] the last few days for this and diagnosed with bronchitis. She states that during this last few days she has had some generalized abdominal pain that she describes as a cramping type pain. She denies any vomiting, diarrhea, any fevers or chills. PAST MEDICAL HISTORY: 1. Diabetes mellitus. 2. Known CAD status post [place]. 3. History of atrial fibrillation. 4. Hypertension. 5. Chronic neuropathy secondary to diabetes. 6. Gastroesophageal reflux disease. 7. History of GI bleed. PAST SURGICAL HISTORY: 1. Cholecystectomy. 2. Left ankle surgery. 3. Breast reduction. SOCIAL: Denies alcohol, tobacco or illicit drug use. ALLERGIES: Metformin which causes swelling. HOME MEDICATIONS: A list will be obtained by the nursing staff and once verified will review and restart as appropriate. REVIEW OF SYSTEMS: Discussed with patient with pertinent positives stated in the HPI. She denied any syncope, dizziness, any palpitations, a productive cough, any fevers or chills, any vomiting, diarrhea, constipation, black or bloody vomitus or stools, any hematuria, dysuria, frequency, urgency. PHYSICAL EXAMINATION: GENERAL: This is a 54-year-old female who is lying on the stretcher in the emergency room in no distress. VITAL SIGNS: Blood pressure is 140/93 with a heart rate of 86, respirations are 18, temperature is 98.1 degrees oral with room air saturation 99%. HEENT: Pupils are equal, round, react to light. EOMs are intact. Sclerae anicteric. Head is normocephalic, atraumatic. Mucous membranes are moist. NECK: Supple with trachea midline. CARDIOVASCULAR: Regular rate and rhythm. S1 and S2 appreciated. She has no lower extremity edema. Calves are nontender bilateral with peripheral pulses palpable x4 extremities. PULMONARY: Breath sounds are clear with no increased work of breathing noted. Chest rise, fall symmetric respiration. Chest wall is nontender to palpation. GASTROINTESTINAL: Abdomen is soft, nontender, nondistended with bowel sounds in all 4 quadrants. : She has no CVA or suprapubic tenderness. NEUROLOGIC: She is alert, oriented x3. SKIN: Warm and dry. LABS: WBC is 9.2 with hemoglobin 10.2, hematocrit 32 and platelets of 478,000. INR is 1.06. Sodium 144, potassium 3.8, BUN 59, creatinine 2.4 with a glucose of 58. Troponins were at 1:30 on the 18th 0.041, at 3:51 on the 18th 0.035. ProBNP is 10,751. Chest x-ray reveals cardiomegaly with pulmonary vascularity indistinct, some increased markings in the lung bases. No pneumothorax or pleural effusion. EKG revealed sinus rhythm at a rate of 95 with a QTc of 492. ASSESSMENT AND PLAN: 1. Dehydration. 2. Acute kidney injury in the setting of chronic kidney disease with a baseline creatinine of 1.4 to 1.5. 3. Diabetes mellitus. 4. Hypertension. 5. History of atrial fibrillation. 6. Gastroesophageal reflux disease. 7. Coronary artery disease status post myocardial infarction. 8. Neuropathy. 9. Hypertension. 10. Hypoglycemia PLAN: The patient will be admitted to ICU. continue a Cardene drip as per protocol. will identify her home medications and continue these as appropriate. repeat a cardiac profile and troponin as well as a CBC and CMP. pattern blood glucose with sliding scale insulin. hold any renal toxic medications, any diuretics at the present and hold any oral antidiabetic medications and check blood sugars. telemetry. GI prophylaxis use Prilosec. Plan discussed with Dr Carmichael. Further treatments pending hospital course. Plan was discussed with Dr. Carmichael. Dictated by MISSY Fay for Agustín Carmichael MD cc: MISSY Fay MD [facility]
[2019-06-17] MEDS: TAMBOCOR PO SCH (20:03)
[2019-06-17] MEDS: NORCO-5 PO PRN (20:03)
[2019-06-17] MEDS: CARDIZEM ONE (20:04)
[2019-06-17 20:42] LABS: BILIRUBIN URINE NEGATIVE (NEGATIVE); BLOOD URINE 1+ (NEGATIVE); CLARITY CLEAR (CLEAR); COLOR YELLOW; KETONE URINE NEGATIVE (NEGATIVE); LEUKOCYTES URINE NEGATIVE (NEGATIVE); NITRITE URINE NEGATIVE (NEGATIVE); PROTEIN URINE 2+(100 mg/dL) mg/dL (NEGATIVE); SP GRAVITY URINE 1.005; UROBILINOGEN URINE NORMAL
[2019-06-17 20:45] LABS: URINE BACTERIA NEGATIVE /HFP; URINE CAST NONE SEEN /LPF; URINE EPITHELIAL CELLS <10 /HPF (<10); URINE RBC <10 /HPF (<10); URINE WBC <10 /HPF (<10); URINE YEAST NONE SEEN /HPF
[2019-06-17 20:46] LABS: URINE CRYSTAL NONE SEEN /HPF; URINE SOURCE CATH
--- NOTE | 2019-06-17 22:16 | HISTORY AND PHYSICAL ---
CHIEF COMPLAINT: Chest pain. ADDENDUM: Patient seen and examined by myself. Full note dictated and discussed with nurse practitioner. Patient presented to the hospital with generalized abdominal pain, shortness of breath and chest pain. She was recently diagnosed with bronchitis and noted to have markedly elevated blood pressures of 160/110. We are going to admit her to the hospital to the ICU on [address]. cc: Agustín Carmichael MD MTDD
[2019-06-18] MEDS: NORCO-5 PO PRN ×3 (02:39→20:17)
[2019-06-18] MEDS: CARDIZEM ONE (04:50)
[2019-06-18] MEDS: HUMALOG (PARKWAY) SUBQ SCH ×4 (06:04→20:17)
[2019-06-18 07:02] LABS: BASO# 0.05 X1000 (0.0-0.2); BASO% 0.5 % (0.0-0.8); EOS# 0.14 X1000 (0.0-0.7); EOS% 1.4 % (0.0-10.0); HEMATOCRIT 36.6 % (37.0-47.0); HEMOGLOBIN 11.9 g/dL (12.0-16.0); IMM GRAN# 0.05 X1000 (0.0-0.04); IMM GRAN% 0.5 % (0.0-0.5); LYMPH# 1.15 X1000 (1.2-3.4); LYMPH% 11.7 % (20.5-51.1); MCHC 32.5 g/dL (33-37); MCV 89.1 FL (81-99); MONO# 0.76 X1000 (0.11-0.59); MONO% 7.8 % (1.7-9.3); MPV 10.4 FL (7.4-10.4); NEUT# 7.65 X1000 (1.4-6.5); NEUT% 78.1 % (42.2-75.2); PLT 419 X1000 (130-400); RBC 4.11 XMIL (4.2-5.4); RDW 17.2 % (11.5-14.5)
[2019-06-18 07:16] LABS: ALBUMIN 3.8 g/dL (3.5-5.0); CALCIUM 9.1 mg/dL (8.8-10.2); CREATININE 2.1 mg/dL (0.5-0.9); MAGNESIUM 2.2 mg/dL (1.5-2.7); PHOSPHORUS 4.5 mg/dL (2.7-4.5); POTASSIUM 4.1 mmol/L (3.5-5.1); TOTAL BILIRUBIN 0.3 mg/dL (0.20-1.00); TOTAL PROTEIN 7.4 g/dL (6.3-8.3)
[2019-06-18] MEDS: NEURONTIN PO SCH ×2 (09:12→20:17)
[2019-06-18] MEDS: CARDIZEM CD PO SCH (09:12)
[2019-06-18] MEDS: TAMBOCOR PO SCH ×2 (09:13→20:17)
[2019-06-18] MEDS: CATAPRES PO SCH (09:13)
[2019-06-18] MEDS: LANOXIN PO SCH (09:19)
--- NOTE | 2019-06-18 10:41 | ECHO REPORT ---
ORDER DATE: 06/17/2019 INDICATION: Chest pain. Ventricular tachycardia. FINDINGS: 1. The right atrium appears moderately enlarged at 5.4 cm. 2. Mild tricuspid regurgitation. The RV systolic pressure is 51. 3. The right ventricle appears somewhat enlarged with a normal RV systolic function. 4. Mild pulmonic insufficiency. 5. Suggestion of severe left atrial enlargement with a volume index of 77. 6. No mitral valve prolapse. Mild mitral regurgitation. 7. Dilated left ventricle with an end-diastolic dimension of 6.3. Mild left ventricular hypertrophy with a posterior and interventricular septal wall thickness of 1.2 cm each. Reduced LV systolic function with an estimated EF of 40 to 45 percent. There appears to be some hypokinesis of the inferior lateral wall. 8. Aortic valve opens well. It is trileaflet. No evidence of stenosis or insufficiency. 9. Aorta appears normal in visualized segments. 10. No pericardial effusion seen. cc: MD Magaly Viveros CRNP
[2019-06-18 14:30] LABS: CHOLESTEROL 142 mg/dL (0-200); HDL 41 mg/dL (45-65); LDL 85 mg/dL; TRIGLYCERIDES 79 mg/dL (35-135); VLDL 16 mg/dL
--- NOTE | 2019-06-18 14:55 | CARDIOLOGY CONSULTATION ---
DATE: 06/18/2019 REQUESTING PHYSICIAN: Hospitalist Service. REASON FOR CONSULTATION: Chest discomfort, palpitations, arrhythmias. HISTORY OF PRESENT ILLNESS: Ms. Rodriguez is a 54-year-old black female who presented to the hospital at [place] on 06/16/2019 with complaints of several days of increasing chest discomfort, sharp chest pain, substernal, not associated with physical activity, intermittent. She had also been complaining of cough, and had been evaluated at the ER in [place], where they diagnosed bronchitis and gave her treatment. She has felt quite poorly over the course of the days preceding the admission. The patient has complained of generalized fatigue, weakness, and some dizziness. After admission to the hospital, they noted a very high blood pressure. We put her on Cardene drip, and then she developed supraventricular tachycardia with a heart rate of 222 beats per minute. They had to switch over to Cardizem, which helped to control the heart rate. Eventually, she has settled down. Her vital signs are more normal now. She is not having any further palpitations. However, she is still having intermittent chest discomfort, not as bad as a few days ago. PAST MEDICAL HISTORY: Positive for diabetes mellitus for a number of years. She has been diagnosed with coronary artery calcification. In 1998, she had a normal heart catheterization. Subsequently in 2012, she underwent a coronary CTA that showed some coronary atherosclerosis in the range of mild degree with ejection fraction of 44%. The patient underwent a nuclear stress test back in 2017 that showed no significant ischemic defects. She does have an inferior wall fixed defect. Her history is positive for hypertension. She has had a previous arrhythmia, question of paroxysmal atrial fibrillation in the past. She has had hyperlipidemia and acid reflux. PAST SURGICAL HISTORY: She had cholecystectomy, breast reduction, left ankle surgery. SOCIAL HISTORY: She is to her for 18 years. The patient has no children. She works at [employer]. She does not smoke. FAMILY HISTORY: Several members of her family have diabetes and heart disease. REVIEW OF SYSTEMS: Other than the aforementioned symptoms is really noncontributory. HOME MEDICATION LIST: Includes: 1. Allopurinol 100 mg daily. 2. Lipitor 20 mg at bedtime. 3. Cetirizine 1 tablet at bedtime. 4. Clonidine 0.1 mg daily. 5. Diltiazem, I believe, 240 mg daily. 6. Fenofibrate 1 tablet daily. 7. Flecainide 50 twice a day. 8. Gabapentin 300 in the morning and 300 at bedtime. 9. Glimepiride 4 mg twice a day. 10. Insulin Basaglar 35 units twice a day. 11. Linzess daily. 12. Losartan daily. 13. Medrol Dosepak. 14. Omeprazole. 15. Januvia. ALLERGIES: Metformin. PHYSICAL EXAMINATION: Vital Signs: Blood pressure 127/85, temperature 97.9 degrees, pulse 79, respirations 15. General: She is awake, alert, in no distress. HEENT: Unremarkable. Chest: Sounds relatively clear to auscultation and percussion. Heart: Sounds regular and rhythmic. I do not hear a gallop or murmur. Abdomen: Soft, nontender. No masses. No hepatomegaly. Extremities: Good pulses. No peripheral edema. Neurologic: Nonfocal. Moves 4 extremities. LABORATORY AND DIAGNOSTIC DATA: Her EKG from yesterday at 7:17 p.m. showed supraventricular tachycardia, rate of 222 beats per minute. Then, 2 minutes later, her EKG showed sinus tachycardia, rate 111 beats per minute. Her echocardiogram from 06/17/2019 shows ejection fraction 40% to 45%. She was noted to have one short run of ventricular tachycardia. Blood work: Hemoglobin 11.9, hematocrit 36.6. Sodium 143, potassium is 4.1, BUN is 39, creatinine 2.1. ProBNP was 10,000 on admission, and now is 7406. IMPRESSION: 1. Patient who presented with chest discomfort, atypical. 2. Increasing dyspnea, possible bronchitis. 3. Diabetes mellitus type 2. 4. History of mild coronary heart disease. 5. History of systolic ventricular dysfunction/chronic congestive heart failure, both systolic and diastolic. 6. Hypertensive heart disease. 7. Supraventricular tachycardia. RECOMMENDATION: At this time, we will increase her flecainide to 100 mg twice a day. Will continue diltiazem at the recommended dose by primary service of 240 mg daily. I will arrange for a walking Lexiscan MPI study in the morning to evaluate for her chest pain. We will give further recommendations upon review of that particular study. We will check a hemoglobin A1c. Will check a lipid panel. We will obtain a CT scan of the chest without contrast because of the abnormal chest x-ray noted at the time of admission. Thank you for asking us to participate in her evaluation. cc: Wilson Mariscal MD
[2019-06-18 16:36] LABS: C REACTIVE PROT QUANT 7.06 mg/L (0.00-5.00)
--- NOTE | 2019-06-18 17:59 | PROGRESS NOTE ---
DATE: 06/18/2019 SUBJECTIVE: The patient notes that she is feeling a lot better. She denies any fevers. She did have an eventful night with markedly elevated heart rates, up into the 180s and 200s. She was started on a Cardizem drip. Currently she is still on a Cardizem drip, and hopefully this can be weaned off later on today. OBJECTIVE: Temperature 98, pulse 91 to 110, BP 141/98. General: The patient is awake. She is in no respiratory distress.HEENT: Normocephalic. Neck supple. Cardiovascular: Regular rate. Chest clear. Abdomen soft. Extremities: Moves all extremities. ASSESSMENT: 1. Supraventricular tachycardia, much improved. 2. Hypertensive urgency, improved. 3. Chronic neuropathy. 4. History of atrial fibrillation. 5. Diabetes. 6. Chronic kidney disease. 7. Known coronary artery disease. PLAN: We will continue the patient in the hospital. Continue Cardizem drip. We are going to place her on p.o. Cardizem and see if we can wean off the IV and follow. Forty minutes was spent in total care. cc: Agustín Carmichael MD
--- NOTE | 2019-06-18 18:57 | Diag Imaging Result Doc PS360 ---
EXAM: CT THORAX W/O CONTRAST 06/18/2019 HISTORY: abnormal Chest X Ray TECHNIQUE: This exam was performed using automated exposure control, adjustment of mA or kV according to patient size, and/or use of iterative reconstruction technique. COMMENT: There are no previous studies available for comparison. There is a precarinal node measuring 13 mm in diameter. There are calcifications in the right hilum. There is a tiny amount of pleural fluid on the right. There is a left renal cyst. There is some patchy air trapping in the lung bases. There is a calcified granuloma in the posterior costophrenic sulcus of the right lower lobe. There is some atelectasis or fibrosis in the left lower lobe and inferior lingula. There is no evidence of consolidation to suggest pneumonia. There are some spondylotic changes in the thoracic spine. No evidence of acute bony abnormality is present. There is retained food in the stomach. There has been cholecystectomy. IMPRESSION: Minimal atelectasis. Small right pleural effusion. Granulomatous changes. Electronically signed by Truong Hightower 06/18/2019 6:55 PM
[2019-06-19 06:11] LABS: HEMOGLOBIN A1C 6.3 % (4.8-6.0)
[2019-06-19 06:12] LABS: AGAP 13; ALBUMIN 3.3 g/dL (3.5-5.0); ALKALINE PHOSPHATASE 37 U/L (32-104); BUN 47 mg/dL (8-22); CALCIUM 8.4 mg/dL (8.8-10.2); CHLORIDE 106 mmol/L (98-107); CHOLESTEROL 125 mg/dL (0-200); COSMO 290; CREATININE 2.3 mg/dL (0.5-0.9); ESTIMATED GFR 27; GLUCOSE 106 mg/dL (70-104); GOT 26 U/L (10-30); GPT 50 U/L (10-36); HDL 36 mg/dL (45-65); LDL 67 mg/dL; POTASSIUM 4.1 mmol/L (3.5-5.1); SODIUM 139 mmol/L (136-145); TCO2 20 mmol/L (25-35); TOTAL PROTEIN 6.5 g/dL (6.3-8.3); TRIGLYCERIDES 108 mg/dL (35-135); VLDL 22 mg/dL
--- NOTE | 2019-06-19 06:24 | EKG Report ---
Test Performed on : 06/19/2019 06:16:07 AM Test Reason : PSVT Blood Pressure : / mmHG Vent. Rate : 086 BPM Atrial Rate : 086 BPM P-R Int : 184 ms QRS Dur : 090 ms QT Int : 386 ms P-R-T Axes : 000 -27 150 degrees QTc Int : 461 ms Normal sinus rhythm. Inferior infarct , age undetermined T wave abnormality, consider lateral ischemia Abnormal ECG When compared with ECG of 17-JUN-2019 17:17, (Unconfirmed) No significant change was found Confirmed by Binh Rubi MD ([id number]) on 07/04/2019 3:32:03 PM
[2019-06-19] MEDS ORDERED: MIRALAX PO PRN (07:24)
[2019-06-19] MEDS: HUMALOG (PARKWAY) SUBQ SCH ×4 (08:00→20:00)
[2019-06-19] MEDS: FISH OIL CONCENTRATE PO SCH (08:58)
[2019-06-19] MEDS: NEURONTIN PO SCH ×2 (08:58→20:01)
[2019-06-19] MEDS: CARDIZEM CD PO SCH (08:58)
[2019-06-19] MEDS: COZAAR PO SCH (08:58)
[2019-06-19] MEDS: AMARYL PO SCH ×2 (08:58→17:37)
[2019-06-19] MEDS: TAMBOCOR PO SCH ×2 (08:59→20:01)
[2019-06-19] MEDS: CATAPRES PO SCH (08:59)
[2019-06-19] MEDS: ZYLOPRIM PO SCH (08:59)
[2019-06-19] MEDS: TRICOR PO SCH (08:59)
[2019-06-19] MEDS: LANTUS INSULIN SUBQ SCH ×2 (08:59→20:00)
[2019-06-19] MEDS: JANUVIA PO SCH (08:59)
[2019-06-19] MEDS: LANOXIN PO SCH (09:02)
[2019-06-19] MEDS: LINZESS PO SCH (09:06)
[2019-06-19] MEDS: NORCO-5 PO PRN ×2 (09:07→20:01)
--- NOTE | 2019-06-19 10:07 | EKG Report ---
Test Performed on : 06/17/2019 7:17:43 PM Test Reason : SVT Blood Pressure : / mmHG Vent. Rate : 222 BPM Atrial Rate : 220 BPM P-R Int : 000 ms QRS Dur : 084 ms QT Int : 204 ms P-R-T Axes : 000 -41 125 degrees QTc Int : 392 ms Supraventricular tachycardia. Left axis deviation ST & T wave abnormality, consider lateral ischemia Abnormal ECG When compared with ECG of 17-JUN-2019 17:17, (Unconfirmed) Vent. rate has increased BY [address] elevation now present in Anterior leads ST now depressed in Lateral leads Nonspecific T wave abnormality now evident in Inferior leads Confirmed by Binh Rubi MD ([id number]) on 07/04/2019 3:28:38 PM
[2019-06-19] MEDS ORDERED: LEXISCAN ONE (14:38)
--- NOTE | 2019-06-19 18:06 | Diag Imaging Result Document ---
PROCEDURE NAME: MYOCARDIAL PERF SCAN, STR/REST - 06/19/2019 INDICATION: Patient with a cardiomyopathy and arrhythmia. Progression of coronary heart disease suspected. DESCRIPTION: The patient came in to the nuclear lab and received a rest injection of technetium 99 sestamibi 11.4 mCi. Multiple tomographic views of the cardiac structures were obtained at rest. Subsequently the patient underwent a walking Lexiscan protocol with 0.4 mg of Lexiscan infused. At peak infusion she was injected with technetium 99 sestamibi 29.8 mCi. Multiple tomographic views of the cardiac structures were obtained following completion of the protocol. SUMMARY OF THE ELECTROCARDIOGRAPHIC PORTION OF THE STUDY: Resting electrocardiogram showed sinus rhythm, rate 90 beats per minute. There was a rightward axis and a nonspecific T-wave abnormality. During the protocol, the heart rate increased to a maximum of 114 beats per minute. Blood pressure dropped to 113/78. The patient reported mild dyspnea. There were no palpitations nor chest pain. ECG showed no ischemic changes. Following completion of the test, heart rate and blood pressure returned back to baseline. In summary, electrocardiographic response to a walking Lexiscan protocol is deemed to be negative . SUMMARY OF THE MYOCARDIAL PERFUSION PORTION OF THE STUDY: Post-stress tomographic views of the left ventricle showed essentially normal myocardial perfusion. There is no convincing evidence of any post-stress defect. Rest images showed normal perfusion. The polar plots revealed the same. No convincing evidence of any inducible ischemia. No myocardial scar. There is a trivial degree of apical anterior attenuation, likely consistent with apical thinning. No ischemia nor significant scar is identified. Gated SPECT, on the rest and stress images using the Reddick II protocol, is 29%. The ventricular volumes, end systolic volume is about 164 mL. They are significantly enlarged. Using the Myometrix protocol, the resting ejection fraction is 21%, and the post stress is 32%. The lung/heart ratio is 0.39. The TID is 1. SUMMARY: This study shows: 1. Unremarkable electrocardiographic response to a walking Lexiscan protocol. 2. Probably normal post-stress myocardial perfusion scan. There is no scintigraphic evidence of pharmacologically induced myocardial ischemia. A trivial attenuation artifact is noted at the apex of the left ventricle. 3. Enlargement of the left ventricle with a significantly decreased ejection fraction estimated at 29% with the Anam Tool protocol and 32% with the Myometrix protocol. Clinical correlation recommended. 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 cc: Wilson Mariscal MD [facility] H[facility]PITALManuela
[2019-06-19] MEDS: LIPITOR PO SCH (20:00)
[2019-06-19] MEDS: ZYRTEC PO SCH (20:01)
--- NOTE | 2019-06-19 21:25 | PROGRESS NOTE ---
DATE: 06/19/2019 SUBJECTIVE: Patient notes that she is feeling a lot better. Denies any chest pain. Denies palpitation. Denies fevers or chills. OBJECTIVE: Vital Signs: Temperature 98 degrees, pulse 85, respiratory rate 18, BP 119/82. General: Patient is very pleasant. She is in no distress. Symptoms appear to be much improved. She has weaned off Cardizem as well as Cardene. HEENT: Normocephalic, atraumatic. PERRL. Neck: Supple. Cardiovascular: Regular rate. No appreciable murmurs. Chest: Clear and nonlabored. Abdomen: Soft. Extremities: Moves all extremities. Neurologic: No changes. ASSESSMENT: 1. Supraventricular tachycardia, appears resolved. Currently is rate controlled. 2. Dehydration, appears resolved. 3. Acute kidney injury. 4. Diabetes. 5. Hypertension. PLAN: Will continue patient in the hospital given that she has just now weaned off Cardizem. Will follow. Hopefully, she can transition to the floor tomorrow and home soon. cc: Agustín Carmichael MD
[2019-06-20] MEDS: LINZESS PO SCH (06:21)
[2019-06-20] MEDS: PRILOSEC PO SCH (06:21)
[2019-06-20] MEDS: HUMALOG (PARKWAY) SUBQ SCH ×4 (06:22→20:37)
[2019-06-20] MEDS: TAMBOCOR PO SCH ×2 (08:47→20:36)
[2019-06-20] MEDS: AMARYL PO SCH ×2 (08:47→16:10)
[2019-06-20] MEDS: FISH OIL CONCENTRATE PO SCH (08:47)
[2019-06-20] MEDS: NEURONTIN PO SCH ×2 (08:47→20:36)
[2019-06-20] MEDS: JANUVIA PO SCH (08:47)
[2019-06-20] MEDS: COZAAR PO SCH (08:47)
[2019-06-20] MEDS: CARDIZEM CD PO SCH (08:48)
[2019-06-20] MEDS: ZYLOPRIM PO SCH (08:48)
[2019-06-20] MEDS: TRICOR PO SCH (08:48)
[2019-06-20] MEDS: LANTUS INSULIN SUBQ SCH ×2 (08:48→20:37)
[2019-06-20] MEDS: CATAPRES PO SCH (08:48)
[2019-06-20] MEDS: LANOXIN PO SCH (09:05)
[2019-06-20] MEDS: NORCO-5 PO PRN (20:35)
[2019-06-20] MEDS: LIPITOR PO SCH (20:36)
[2019-06-20] MEDS: ZYRTEC PO SCH (20:36)
--- NOTE | 2019-06-20 22:13 | PROGRESS NOTE ---
DATE: 06/20/2019 SUBJECTIVE: Patient notes overall she is feeling a lot better. Denies any fevers. Denies chills, cough, congestion. PHYSICAL EXAMINATION: Vital Signs: Temperature 97, 85, respiratory rate 18, BP 119/82. General: Patient is awake, currently in no respiratory distress. HEENT: Normocephalic. Neck: Supple. Cardiovascular: Currently rate controlled. No murmurs. Chest: Clear, nonlabored. Abdomen: Soft ,nondistended. Extremities: Moves all extremities. ASSESSMENT: 1. Cardiac dysrhythmia. Currently, she is on flecainide and Cardizem. We will continue to follow. 2. Congestive heart failure with an ejection fraction of 29%. 3. Diabetes with an A1c good at 6.3. 4. Hypertension. 5. Known coronary artery disease status post myocardial infarction. PLAN: We will continue patient in the hospital. We will follow Cardiology's input. Continue flecainide and Cardizem. Hopefully, she can continue to improve and be discharged home over the next day or two. cc: Agustín Carmichael MD
[2019-06-21] MEDS: HUMALOG (PARKWAY) SUBQ SCH (06:18)
[2019-06-21] MEDS: LINZESS PO SCH (07:05)
[2019-06-21] MEDS: PRILOSEC PO SCH (07:05)
[2019-06-21] MEDS: AMARYL PO SCH (07:07)
[2019-06-21] MEDS: ZYLOPRIM PO SCH (09:21)
[2019-06-21] MEDS: TRICOR PO SCH (09:21)
[2019-06-21] MEDS: LANOXIN PO SCH (09:21)
[2019-06-21] MEDS: COZAAR PO SCH (09:22)
[2019-06-21] MEDS: JANUVIA PO SCH (09:22)
[2019-06-21] MEDS: CARDIZEM CD PO SCH (09:22)
[2019-06-21] MEDS: NEURONTIN PO SCH (09:22)
[2019-06-21] MEDS: CATAPRES PO SCH (09:22)
[2019-06-21] MEDS: TAMBOCOR PO SCH (09:22)
[2019-06-21] MEDS: FISH OIL CONCENTRATE PO SCH (09:22)
[2019-06-21] MEDS: LANTUS INSULIN SUBQ SCH (09:22)
[2019-06-21 09:34] VITALS: BP 119/78
[2019-06-24] MEDS ORDERED: VITAMIN D PO SCH (09:00)
--- NOTE | 2019-07-01 19:06 | DISCHARGE SUMMARY ---
ADMISSION DATE: 06/16/2019 DISCHARGE DATE: 06/21/2019 DISCHARGE DIAGNOSIS: 1. Cardiac dysrhythmia, stable on flecainide and Cardizem. 2. Congestive heart failure with an ejection fraction of 20%. 3. Diabetes with an A1c at 6.3. 4. Hypertension. 5. Known coronary artery disease. 6. Generalized weakness, improved. CONSULTATIONS: Cardiology. PROCEDURES: None. BRIEF HOSPITAL COURSE: Patient was admitted to the hospital, treated in the usual fashion. Thankfully, she had an uneventful hospital course, prolonged secondary to getting her heart rhythm controlled. She was placed on Cardizem. Her sotalol was held. She was placed on flecainide by Cardiology. This did improve her heart rate. She was transitioned out of the ICU to the floor. Unfortunately, because she had been chronically deconditioned prior to coming to the hospital and then stayed in the ICU for a few days, she was unable to ambulate without assistance. Thankfully over the next few days, she did receive assistance ambulating and was feeling much better. Although she was not completely back to her baseline, she noted that she was able to care for herself at home. She was able to ambulate back and forth between the bed and her restroom. Stated that her house was not that large and that she wanted to go home. The patient will be discharged home. She will continue her current medications as listed on the discharge medication summary. Discussed with her that she needs to have short bursts of ambulation today. We will attempt home health physical therapy, discussed with her that if she is unable to care for herself at home certainly she will immediately call us back and we can assist her getting into rehab. cc: Agustín Carmichael MD
== END 2019-06-21 12:34 | disposition home or self-care (01) | DRG 305 ==
LOC: P.ED 13:30 → P.EDIPHOLD 13:31 → P.ICU 06-17 11:06
PROVIDERS: ATTEND Family Medicine

== ENCOUNTER 2019-07-01 07:11 | Inpatient (IN) ==
[2019-07-01] MEDS ORDERED: ASPIRIN PO ONE (07:33)
--- NOTE | 2019-07-01 07:50 | PROVIDER DOCUMENTATION ---
HPI-Chest Pain - General Chief Complaint: Chest Pain Stated Complaint: cp/sob Time Seen by Provider: 07/01/19 07:42 Source: patient Allergies/Adverse Reactions: Patient Allergies Allergy/AdvReac Type Severity Reaction Status Date / Time metformin Allergy SWELLING Verified 07/01/19 07:30 Home Medications: Home Medication List Medication Instructions Recorded Confirmed Last Taken Type Allopurinol 1 tab PO DAILY 11/19/15 06/17/19 06/26/18 06:00 History Losartan Potassium 1 tab PO DAILY 11/19/15 06/17/19 06/26/18 06:00 History Ergocalciferol (Vitamin D2) 50,000 unit PO DIRECTED 06/02/18 06/17/19 03/11/19 History [Vitamin D] Glimepiride 4 mg PO BID 06/02/18 06/17/19 06/26/18 06:00 History [place]-3 Fatty Acids/Fish Oil [Fish 1 each PO DAILY 06/02/18 06/18/19 06/26/18 06:00 History Oil 1,000 mg Capsule] Sitagliptin Phosphate [Januvia] 100 mg PO DAILY 06/02/18 06/17/19 06/26/18 06:00 History Omeprazole 1 tab PO DAILY@0600 06/26/18 06/17/19 06/26/18 06:00 History Polyethylene Glycol 3350 [Miralax] 17 gm PO DAILY PRN PRN 06/26/18 06/18/19 06/26/18 06:00 History Atorvastatin Calcium [Lipitor] 20 mg PO QHS 03/17/19 06/17/19 Unknown History Cetirizine HCl 1 tab PO QHS 03/17/19 06/17/19 Unknown History Clonidine HCl 0.1 mg PO DAILY 03/17/19 06/17/19 Unknown History Insulin Glargine [Basaglar] 35 units SQ BID 03/17/19 06/17/19 Unknown History Diltiazem HCl [Diltiazem 24Hr ER 1 tab PO DAILY 06/17/19 06/17/19 Unknown History (Cd)] Fenofibrate 1 tab PO DAILY 06/17/19 06/17/19 Unknown History Gabapentin 300 mg PO DAILY 06/17/19 06/17/19 Unknown History Gabapentin 600 g PO QHS 06/17/19 06/17/19 Unknown History Hydrocodone/Acetaminophen 1 tab PO Q6H PRN 06/17/19 06/17/19 Unknown History [Hydrocodone-Acetamin 5-325 mg] Linaclotide [Linzess] 1 cap PO DAILY 06/17/19 06/17/19 Unknown History Flecainide [Tambocor] 100 mg PO BID #60 tab 06/21/19 Unknown Rx Past History - Adult - PAST MEDICAL HISTORY-ADULT Major Childhood Illnesses: reports: denies history Cardiovascular: reports: arrhythmia (SVT), HTN, hyperlipidemia, [place] Respiratory: reports: denies history Gastrointestinal: reports: GERD, GI bleed Obstetrical/Gynecological: reports: denies history Genitourinary: reports: denies history Musculoskeletal: reports: denies history Neurological: reports: denies history Endocrine/Immune: reports: Diabetes Other Conditions: reports: denies history - PRIOR SURGERIES/PROCEDURES Surgical/Procedure History: reports: cholecystectomy, orthopedic (extremity) (left ankle), breast (reduction) - IMMUNIZATION STATUS Childhood Immunizations: See Nurse Assessment Flu Vaccine: See Nurse Assessment - FAMILY HISTORY Family History: CAD over 55 yo Progress - PLAN OF CARE/RESULTS Progress/Plan/Lab Results: Vital Signs - 8 hr 07/01/19 07:20 Temperature 97.9 F Pulse Rate 94 H Blood Pressure 166/113 O2 Sat by Pulse Oximetry 99 Orders Category Date Time Status Cardiac Monitoring DIRECTED Care 07/01/19 07:33 Active Oxygen Therapy- ED Nursing DIRECTED Care 07/01/19 07:33 Active Saline Loc NOW Care 07/01/19 07:33 Active CHEST-2 VIEWS [RAD] Stat Exams 07/01/19 07:33 Ordered CBC WITH ELECTRONIC DIFF [HEME] Stat Lab 07/01/19 07:45 Ordered CK PROFILE [SP CHEM] Stat Lab 07/01/19 07:45 Ordered COMPREHENSIVE METABOLIC PANEL [CHEM] Stat Lab 07/01/19 07:45 Ordered PRO B-NATRIURETIC PEPTIDE Stat Lab 07/01/19 07:45 Ordered PROTIME WITH INR [COAG] Stat Lab 07/01/19 07:45 Ordered PTT [COAG] Stat Lab 07/01/19 07:45 Ordered TROPONIN T Stat Lab 07/01/19 07:45 Ordered Aspirin Med 07/01/19 07:33 Discontinued 325 mg PO NOW ONE CP/SOB/Palp >45 yrs of Age Stat Oth 07/01/19 07:33 Ordered EKG [EKG] Stat Ther 07/01/19 07:33 Ordered - EKG 1 Time of EKG reading by physician:: 07:24 EKG Read and Signed by:: Robbie Collier EKG Interpretation (*Must complete 3 of following elements*): Abnormal Rate: 94 Rhythm: NSR QRS: poor R wave progression ST Wave: normal Departure - Departure Referrals and Follow-Ups: Ramona Sanchez [Primary Care Provider] -
--- NOTE | 2019-07-01 08:00 | PROVIDER DOCUMENTATION ---
HPI-Chest Pain - General Chief Complaint: Chest Pain Stated Complaint: cp/sob Time Seen by Provider: 07/01/19 07:42 Source: patient Allergies/Adverse Reactions: Patient Allergies Allergy/AdvReac Type Severity Reaction Status Date / Time metformin Allergy SWELLING Verified 07/01/19 07:30 Home Medications: Home Medication List Medication Instructions Recorded Confirmed Last Taken Type Allopurinol 1 tab PO DAILY 11/19/15 06/17/19 06/26/18 06:00 History Losartan Potassium 1 tab PO DAILY 11/19/15 06/17/19 06/26/18 06:00 History Ergocalciferol (Vitamin D2) 50,000 unit PO DIRECTED 06/02/18 06/17/19 03/11/19 History [Vitamin D] Glimepiride 4 mg PO BID 06/02/18 06/17/19 06/26/18 06:00 History Cascade-3 Fatty Acids/Fish Oil [Fish 1 each PO DAILY 06/02/18 06/18/19 06/26/18 06:00 History Oil 1,000 mg Capsule] Sitagliptin Phosphate [Januvia] 100 mg PO DAILY 06/02/18 06/17/19 06/26/18 06:00 History Omeprazole 1 tab PO DAILY@0600 06/26/18 06/17/19 06/26/18 06:00 History Polyethylene Glycol 3350 [Miralax] 17 gm PO DAILY PRN PRN 06/26/18 06/18/19 06/26/18 06:00 History Atorvastatin Calcium [Lipitor] 20 mg PO QHS 03/17/19 06/17/19 Unknown History Cetirizine HCl 1 tab PO QHS 03/17/19 06/17/19 Unknown History Clonidine HCl 0.1 mg PO DAILY 03/17/19 06/17/19 Unknown History Insulin Glargine [Basaglar] 35 units SQ BID 03/17/19 06/17/19 Unknown History Diltiazem HCl [Diltiazem 24Hr ER 1 tab PO DAILY 06/17/19 06/17/19 Unknown History (Cd)] Fenofibrate 1 tab PO DAILY 06/17/19 06/17/19 Unknown History Gabapentin 300 mg PO DAILY 06/17/19 06/17/19 Unknown History Gabapentin 600 g PO QHS 06/17/19 06/17/19 Unknown History Hydrocodone/Acetaminophen 1 tab PO Q6H PRN 06/17/19 06/17/19 Unknown History [Hydrocodone-Acetamin 5-325 mg] Linaclotide [Linzess] 1 cap PO DAILY 06/17/19 06/17/19 Unknown History Flecainide [Tambocor] 100 mg PO BID #60 tab 06/21/19 Unknown Rx - History of Present Illness-CP Nature of Presenting Problem: 54 yr old F, with reported PMHx of HTN and DM, presents with several hour hx of centralized chest pain. Pt was recently discharged from the ICU a week ago this past Monday, where she was hospitalized for "irregular heartbeat". Pt states that her symptoms really started this past , when she reports that she became short of breath at rest, and remained so throughout the weekend. The pt states she had to use one of the seated carts when she went shopping at [employer], which she typically does not need to do. She states that this morning when she woke up, she vomited, then began experiencing central chest pain, non-radiating, and felt her heart racing. Due to her recent stay in the hospital for heart problems, she became concerned and decided to come in. She reports having chest pain in the past, but nothing quite as severe as this. Location: reports: central Chest Pain Radiation: reports: no radiation Quality of Pain: reports: sharp Severity in ED: moderate Onset/Duration: 1-3 hours ago Timing: still present Context/Activities at Onset: reports: none Modifying Factors: improves with: nothing Associated Symptoms: reports: vomiting Nitro Today/Relief: no nitro taken today Aspirin Treatment Today: provided by ED (325 mg in ED) Similar Symptoms Previously?: Yes Recently Seen Here or By Another Healthcare Provider: No Review of Systems - Adult - REVIEW OF SYSTEMS - ADULT Constitutional: reports: no symptoms reported Eyes: reports: no symptoms reported Ears, Nose, Mouth & Throat: reports: no symptoms reported Cardiovascular: reports: chest pain Respiratory: reports: shortness of breath Gastrointestinal: reports: nausea, vomiting Genitourinary: reports: no symptoms reported Musculoskeletal: reports: no symptoms reported Integumentary: reports: no symptoms reported Neurological: reports: no symptoms reported Psychiatric: reports: no symptoms reported Endocrine: reports: no symptoms reported Past History - Adult - PAST MEDICAL HISTORY-ADULT Review of Records: reports: Nursing Assessment Review, Medications Reviewed Major Childhood Illnesses: reports: denies history Cardiovascular: reports: arrhythmia (SVT), HTN, hyperlipidemia, UT Respiratory: reports: denies history Gastrointestinal: reports: GERD, GI bleed Obstetrical/Gynecological: reports: denies history Genitourinary: reports: denies history Musculoskeletal: reports: denies history Neurological: reports: denies history Endocrine/Immune: reports: Diabetes Other Conditions: reports: denies history - PRIOR SURGERIES/PROCEDURES Surgical/Procedure History: reports: cholecystectomy, orthopedic (extremity) (left ankle), breast (reduction) - IMMUNIZATION STATUS Childhood Immunizations: See Nurse Assessment Flu Vaccine: See Nurse Assessment - FAMILY HISTORY Family History: CAD over 55 yo - SOCIAL HISTORY Substance Use: denies Alcohol Use Frequency: occasionally Physical Exam-General - PHYSICAL EXAM-ADULT Initial Vital Signs Reviewed: Yes - CONSTITUTIONAL General Appearance: alert, mild distress - EYES Eyes: PERRL/EOMI - HEAD, EARS, NOSE, MOUTH & THROAT HENMT: normocephalic/atraumatic - NECK Neck: non-tender - RESPIRATORY Respiratory: lungs clear, other (chest tender to palpation; pt denies that it is similar to the chest pain she came with) - CARDIOVASCULAR Cardiovascular: regular rate, rhythm - GASTROINTESTINAL (ABDOMEN) Abdominal Exam: normal bowel sounds - MUSCULOSKELETAL Extremity: pedal edema - SKIN Integumentary: warm/dry - NEUROLOGIC Neurologic: grossly normal - PSYCHIATRIC Psych/Mental Status: normal mood/affect, oriented x 3 - HEART Score HEART Score: History: Moderately Suspicious HEART Score: ECG: Normal HEART Score: Age: 45-65 Years HEART Score: Risk Factors for Atherosclerotic Disease: > or = 3 Risk Factors or History of Atherosclerotic Disease HEART Score: Troponin: < or = Normal Limit Total HEART Score:: 4 Progress - PLAN OF CARE/RESULTS Progress/Plan/Lab Results: Vital Signs - 8 hr 07/01/19 07:19 07/01/19 07:20 07/01/19 07:30 Temperature 97.9 F Pulse Rate 94 H 93 H Respiratory Rate 24 Blood Pressure 166/113 166/113 O2 Sat by Pulse Oximetry 99 99 99 07/01/19 07:54 07/01/19 07:56 07/01/19 08:00 Temperature Pulse Rate 99 H 99 H 94 H Respiratory Rate 27 H 23 12 Blood Pressure 178/118 174/110 O2 Sat by Pulse Oximetry 96 96 95 07/01/19 08:01 07/01/19 08:15 07/01/19 08:30 Temperature Pulse Rate 93 H 94 H 90 Respiratory Rate 14 26 H 15 Blood Pressure 178/135 O2 Sat by Pulse Oximetry 97 95 98 07/01/19 08:31 07/01/19 08:39 07/01/19 08:42 Temperature Pulse Rate 92 H 192 H 195 H Respiratory Rate 17 31 H 27 H Blood Pressure 129/104 137/98 O2 Sat by Pulse Oximetry 97 100 98 07/01/19 08:45 07/01/19 08:46 07/01/19 08:47 Temperature Pulse Rate 192 H 116 H 90 Respiratory Rate 31 H 23 25 H Blood Pressure 115/96 135/105 O2 Sat by Pulse Oximetry 99 96 96 07/01/19 08:48 07/01/19 08:50 07/01/19 08:52 Temperature Pulse Rate 88 86 82 Respiratory Rate 20 25 H 26 H Blood Pressure 144/93 143/98 145/95 O2 Sat by Pulse Oximetry 94 L 93 L 95 07/01/19 08:54 07/01/19 08:56 07/01/19 08:58 Temperature Pulse Rate 81 81 79 Respiratory Rate 14 20 13 Blood Pressure 158/97 160/95 152/101 O2 Sat by Pulse Oximetry 94 L 93 L 99 07/01/19 09:00 07/01/19 09:01 07/01/19 09:02 Temperature Pulse Rate 85 84 84 Respiratory Rate 25 H 23 25 H Blood Pressure 160/103 154/100 O2 Sat by Pulse Oximetry 96 97 97 07/01/19 09:04 07/01/19 09:06 07/01/19 09:08 Temperature Pulse Rate 86 83 81 Respiratory Rate 24 12 13 Blood Pressure 155/105 161/105 164/105 O2 Sat by Pulse Oximetry 97 98 07/01/19 09:10 07/01/19 09:12 07/01/19 09:14 Temperature Pulse Rate 84 85 83 Respiratory Rate 24 24 16 Blood Pressure 161/103 159/113 159/107 O2 Sat by Pulse Oximetry 96 95 96 07/01/19 09:15 07/01/19 09:16 07/01/19 09:17 Temperature Pulse Rate 83 80 80 Respiratory Rate 19 22 21 Blood Pressure 146/102 O2 Sat by Pulse Oximetry 99 98 97 07/01/19 09:18 Temperature Pulse Rate 83 Respiratory Rate 23 Blood Pressure 157/100 O2 Sat by Pulse Oximetry 96 Laboratory Results - last 24 hr 07/01/19 07/01/19 07/01/19 07:35 07:42 07:42 WBC 6.39 RBC 3.57 L Hgb 10.2 L Hct 31.2 L MCV 87.4 MCH 28.6 MCHC 32.7 L RDW Std Deviation 16.3 H Plt Count 467 H MPV 9.8 Immature Gran % (Auto) 0.3 Neut % (Auto) 55.6 Lymph % (Auto) 33.3 [place] % (Auto) 8.9 Eos % (Auto) 0.8 Baso % (Auto) 1.1 H Immature Gran # (Auto) 0.02 Neut # (Auto) 3.55 Lymph # (Auto) 2.13 [place] # (Auto) 0.57 Eos # (Auto) 0.05 Baso # (Auto) 0.07 PT INR PTT (Actin FS) Sodium 140 Potassium 3.8 Chloride 110 H Carbon Dioxide 20 L Anion Gap 10 BUN 44 H Creatinine 2.4 H Estimated GFR/1.73 m2 25 BUN/Creatinine Ratio 18 Glucose 71 POC Glucose Calculated Osmolality 289 Calcium 8.7 L Total Bilirubin 0.36 AST 69 H ALT 54 H Alkaline Phosphatase 36 Creatine Kinase 173 Troponin T Vxt-M-Tkulsammmyh Pept 02455 H Total Protein 6.6 Albumin 3.6 Globulin 3.0 Albumin/Globulin Ratio 1.2 07/01/19 07/01/19 07/01/19 07:42 07:42 07:58 WBC RBC Hgb Hct MCV MCH MCHC RDW Std Deviation Plt Count MPV Immature Gran % (Auto) Neut % (Auto) Lymph % (Auto) [place] % (Auto) Eos % (Auto) Baso % (Auto) Immature Gran # (Auto) Neut # (Auto) Lymph # (Auto) [place] # (Auto) Eos # (Auto) Baso # (Auto) PT 15.8 INR 1.24 PTT (Actin FS) 29.8 Sodium Potassium Chloride Carbon Dioxide Anion Gap BUN Creatinine Estimated GFR/1.73 m2 BUN/Creatinine Ratio Glucose POC Glucose 72 Calculated Osmolality Calcium Total Bilirubin AST ALT Alkaline Phosphatase Creatine Kinase Troponin T 0.030 Zok-P-Tzivqozffur Pept Total Protein Albumin Globulin Albumin/Globulin Ratio Orders Category Date Time Status Cardiac Monitoring DIRECTED Care 07/01/19 07:33 Active Oxygen Therapy- ED Nursing DIRECTED Care 07/01/19 07:33 Active Saline Loc NOW Care 07/01/19 07:33 Active CHEST-2 VIEWS [RAD] Stat Exams 07/01/19 07:33 Completed LUNG SCAN / VQ [NM] Stat Exams 07/01/19 08:29 Ordered CBC WITH ELECTRONIC DIFF [HEME] Stat Lab 07/01/19 07:35 Completed CK PROFILE [SP CHEM] Stat Lab 07/01/19 07:42 Completed COMPREHENSIVE METABOLIC PANEL [CHEM] Stat Lab 07/01/19 07:42 Completed PRO B-NATRIURETIC PEPTIDE Stat Lab 07/01/19 07:42 Completed PROTIME WITH INR [COAG] Stat Lab 07/01/19 07:42 Completed PTT [COAG] Stat Lab 07/01/19 07:42 Completed TROPONIN T Stat Lab 07/01/19 07:42 Completed URINALYSIS W/POSS RFLX CULT [URINALYSIS] Stat Lab 07/01/19 08:33 Uncollected URINE DRUG SCREEN Stat Lab 07/01/19 08:33 Uncollected Aspirin Med 07/01/19 07:33 Discontinued 325 mg PO NOW ONE Diltiazem 125 mg/D5w [Cardizem 125 mg/D5w] Med 07/01/19 09:00 Active 125 mg in 125 ml IV As Directed mls/hr Diltiazem [Cardizem] Med 07/01/19 08:48 Discontinued 20 mg IV NOW ONE Diltiazem [Cardizem] Med 07/01/19 08:49 Discontinued 20 mg IV NOW ONE Diltiazem [Cardizem] Med 07/01/19 08:49 Discontinued 25 mg .ROUTE .STK-MED ONE Nitroglycerin Med 07/01/19 08:37 Discontinued 1.5 inch TOP NOW ONE CP/SOB/Palp >45 yrs of Age Stat Oth 07/01/19 07:33 Ordered EKG [EKG] Stat Ther 07/01/19 07:33 Draft Transfer/Admit Order [TRANSFER] Routine Transfer 07/01/19 09:10 Ordered Approximately 8:40AM, pt went into SVT - HR of 194, BP dropped from 170s/100 to 139/93. EKG obtained at that time showed SVT with PVCs and LAD. Pt received 20 mg Cardizem at 8:45AM. HR dropped down to 90 within a minute. Repeat EKG shows NSR with sinus arrhythmia. BP 160s/90 Result Diagrams: 07/01/19 07:35 07/01/19 07:42 - EKG 1 Time of EKG reading by physician:: 07:24 EKG Interpretation (*Must complete 3 of following elements*): Abnormal Rate: 94 Rhythm: sinus [place]: normal QRS: normal [place] Interval: normal ST Wave: normal 2 Time of EKG reading by physician:: 08:41 EKG Interpretation (*Must complete 3 of following elements*): Abnormal Rate: 191 Rhythm: SVT [place]: left ST Wave: normal Prior EKG Comparison: changes noted 3 Time of EKG reading by physician:: 08:47 EKG Interpretation (*Must complete 3 of following elements*): Normal Rate: 94 Rhythm: sinus [place]: normal QRS: normal [place] Interval: normal Prior EKG Comparison: changes noted (post Cardizem push) - XRAY 1 XRAY Study: Chest XRAY Interpretation: stable cardiomegaly, mild pulmonary vascular congestion, no acute findings - CONSULTS/PCP/HOSPITALIST Notification #1 *Consult/PCP/Hospitalist*: [place] Time Discussed: 09:10 Consult Disposition: Admit Departure - Departure Date of Disposition Decision: 07/01/19 Time of Disposition Decision: 09:37 DIAGNOSIS: SVT (supraventricular tachycardia), HTN (hypertension) Disposition: ADMITTED INPATIENT 09 Certified Medical Emergency: Emergent Condition: Critical Referrals and Follow-Ups: Ramona Sanchez [Primary Care Provider] - - Critical Care Note This patient required my direct & personal management of CC.: Yes Total Time (mins): 35 Critical Care Statement: This patient required my direct personal management to treat or rule out processes, the absence of which, could potentiallly result in sudden, clinically significant life or limb threatening deterioration. Attestation - Physician/ BRENDA Attestation Patient care was provided by Advanced Practice Provider:: No The physician spent face to face time with patient:: Yes Advanced Practice Provider documentation review:: Supervising physician onsite and consulted in the evaluation and care of this patient. The physician did have a face to face encounter with the patient.
[2019-07-01 08:04] LABS: BASO# 0.07 X1000 (0.0-0.2); BASO% 1.1 % (0.0-0.8); EOS# 0.05 X1000 (0.0-0.7); EOS% 0.8 % (0.0-10.0); HEMATOCRIT 31.2 % (37.0-47.0); HEMOGLOBIN 10.2 g/dL (12.0-16.0); IMM GRAN# 0.02 X1000 (0.0-0.04); IMM GRAN% 0.3 % (0.0-0.5); LYMPH# 2.13 X1000 (1.2-3.4); LYMPH% 33.3 % (20.5-51.1); MCH 28.6 PG (27-31); MCHC 32.7 g/dL (33-37); MCV 87.4 FL (81-99); MONO# 0.57 X1000 (0.11-0.59); MONO% 8.9 % (1.7-9.3); MPV 9.8 FL (7.4-10.4); NEUT# 3.55 X1000 (1.4-6.5); NEUT% 55.6 % (42.2-75.2); PLT 467 X1000 (130-400); RBC 3.57 XMIL (4.2-5.4); RDW 16.3 % (11.5-14.5); WBC 6.39 X1000 (4.8-10.8)
--- NOTE | 2019-07-01 08:04 | Diag Imaging Result Doc PS360 ---
EXAM: CHEST-2 VIEWS INDICATION: chest pain TECHNIQUE: 2 views COMPARISON: 06/16/2019 FINDINGS: The lungs are grossly clear. There is no discrete pleural fluid collection or pneumothorax. There is stable cardiomegaly. The central vasculature is perhaps mildly prominent but stable. This could indicate mild pulmonary venous congestion. IMPRESSION: Stable cardiomegaly and questionable mild pulmonary venous congestion. Electronically signed by Ector Dai 07/01/2019 8:01 AM
[2019-07-01 08:14] LABS: INR 1.24; PROTIME 15.8 Seconds (11.0-16.0)
[2019-07-01 08:15] LABS: PTT 29.8 Seconds (22.3-41.8)
[2019-07-01 08:19] LABS: POTASSIUM 3.8 mmol/L (3.5-5.1)
[2019-07-01 08:20] LABS: ALB/GLOB RATIO 1.2; ALBUMIN 3.6 g/dL (3.5-5.0); CALCIUM 8.7 mg/dL (8.8-10.2); CREATININE 2.4 mg/dL (0.5-0.9); TOTAL BILIRUBIN 0.36 mg/dL (0.20-1.00); TOTAL PROTEIN 6.6 g/dL (6.3-8.3)
--- NOTE | 2019-07-01 08:35 | EKG Report ---
Test Performed on : 07/01/2019 07:23:28 AM Test Reason : chest pain Blood Pressure : / mmHG Vent. Rate : 094 BPM Atrial Rate : 094 BPM P-R Int : 182 ms QRS Dur : 078 ms QT Int : 364 ms P-R-T Axes : 066 006 086 degrees QTc Int : 455 ms Normal sinus rhythm. Possible Left atrial enlargement Septal infarct , age undetermined Abnormal ECG When compared with ECG of 19-JUN-2019 06:16, (Unconfirmed) Septal infarct is now present Criteria for Inferior infarct are no longer present Unconfirmed Result
[2019-07-01] MEDS ORDERED: NITROGLYCERIN TOP ONE (08:37)
[2019-07-01] MEDS ORDERED: CARDIZEM IV ONE ×2 (08:48→08:49)
[2019-07-01] MEDS ORDERED: CARDIZEM ONE (08:49)
[2019-07-01] MEDS ORDERED: CARDIZEM 125 MG/D5W 125 MG/125 ML IVPB IV SCH (09:00)
[2019-07-01 09:50] LABS: URINE SOURCE CATH
[2019-07-01 09:55] LABS: BILIRUBIN URINE NEGATIVE (NEGATIVE); BLOOD URINE TRACE (NEGATIVE); COLOR YELLOW; GLUCOSE URINE NEGATIVE (NEGATIVE); KETONE URINE NEGATIVE (NEGATIVE); LEUKOCYTES URINE NEGATIVE (NEGATIVE); NITRITE URINE NEGATIVE (NEGATIVE); PROTEIN URINE 300 mg/dL (NEGATIVE); SP GRAVITY URINE 1.014; TURBIDITY URINE CLEAR (CLEAR); UR EPITHELIAL CELLS <10 /HPF (<10); URINE BACTERIA NEGATIVE /HPF; URINE RBC <10 /HPF (<10); URINE WBC <10 /HPF (<10); UROBILINOGEN URINE NORMAL (NORMAL)
[2019-07-01] MEDS ORDERED: ZOFRAN IV PRN (10:23)
[2019-07-01] MEDS ORDERED: LASIX IV ONE (10:45)
[2019-07-01 10:48] LABS: UR AMPHETAMINES QUAL NONE DETECTED (NONE DETECT); UR BARBITUATES QUAL NONE DETECTED (NONE DETECT); UR BENZODIAZEPIN QUAL NONE DETECTED (NONE DETECT); UR CANNABINOIDS QUAL PRESUMPTIVE POSITIVE (NONE DETECT); UR COCAINE QUAL NONE DETECTED (NONE DETECT); UR METHADONE QUAL NONE DETECTED (NONE DETECT); UR OPIATES QUAL NONE DETECTED (NONE DETECT); UR OXYCODONE QUAL NONE DETECTED (NONE DETECT); UR PCP QUAL NONE DETECTED (NONE DETECT)
--- NOTE | 2019-07-01 11:14 | CARDIOLOGY CONSULTATION ---
DATE: 07/01/2019 CHIEF COMPLAINT: Chest discomfort, palpitations. HISTORY OF PRESENT ILLNESS: Ms. Rodriguez is a 54-year-old black female with a history of hypertension and dilated nonischemic cardiomyopathy, who presented for re-evaluation. She was recently discharged at the end of last month with similar complaints. She presented, and she was found to be in an SVT around 190. She reports compliance with all of her medications. She was administered some diltiazem in the ER, with reduction in her rate, and conversion to sinus. She reports that she was experiencing orthopnea at home as well. There was no exertional chest discomfort. It occurred when she started having the palpitations. PAST MEDICAL HISTORY: Significant for: 1. SVT, recent admission, with placement on flecainide. 2. Dilated nonischemic cardiomyopathy. She has a history of a normal cardiac catheterization in 1998, with a CTA in 2012 showing minor coronary calcifications. Her most recent nuclear scan on 06/19/2019 demonstrated an EF of 32%, with no evidence of ischemic changes. 3. Hypertension. 4. Diabetes. 5. Reflux disease. 6. Hyperlipidemia. SOCIAL HISTORY: She is . No children. She does not smoke. FAMILY HISTORY: Several members of her family have diabetes, as well as hypertension and heart disease. REVIEW OF SYSTEMS: A 10-system review of systems is negative, except for those things mentioned in the HPI. PHYSICAL EXAMINATION: Vital Signs: She is afebrile, heart rate of 83, her most recent blood pressure is 157/100. General: She is in no acute distress. HEENT: Oropharynx is moist. Poor dentition. Eye examination is pink conjunctivae. White sclerae. Neck: No obvious thyromegaly or thyroid tenderness. Cardiovascular. She sounds to be in a regular rate and rhythm. She has no murmur. She has no S3. She is currently in sinus. She has no lower extremity edema. Chest: Clear bilaterally. She has no increased work of breathing. Abdomen: Soft, nontender, nondistended. She has no obvious organomegaly. Skin: Warm and dry throughout without any rashes. Neurological: She is moving all extremities well. She has no lateralizing deficits. PERTINENT DATA: Her chest x-ray shows stable cardiomegaly with mild pulmonary vascular congestion. She had an electrocardiogram on 07/01/2019 at 7:23 that shows sinus rhythm, rate of 94 beats per minute. She does have one at 8:41 a.m. this morning showing a rapid narrow-complex SVT, rate of 191 beats per minute. Her laboratory data demonstrates a white count of 6.4, hematocrit 31, platelet count of 467,000. Her sodium is 140, potassium is 3.8, her BUN is 44, creatinine is 2.4. AST is 69, ALT 54. Her proBNP was 13,564. ASSESSMENT: Ms. Rodriguez is a 54-year-old female with a dilated nonischemic cardiomyopathy and supraventricular tachycardia. PLAN: We will discontinue the flecainide. I placed her on metoprolol at 12.5 every 6 hours, restarted the losartan. We will start diuresing the patient. Hopefully, we can get her tuned up, diuresed, and home, with subsequent followup with the Electrophysiology Service. cc: Dylon Hicks MD
[2019-07-01] MEDS: LOPRESSOR PO SCH ×3 (12:09→20:04)
--- NOTE | 2019-07-01 12:37 | HISTORY AND PHYSICAL ---
PRIMARY CARE PROVIDER: Dr. Ramona Sanchez. CREAM TESTER: Dr. Edwards. HISTORY OF PRESENT ILLNESS: Ms. Rodriguez is a 54-year-old female who carries a past medical history of diabetes mellitus, known coronary artery disease status post UT in 1998, atrial fibrillation, hypertension, history of GI bleed secondary to ulcers last year. The patient reported she started having chest pain around 4:00 or 5:00 in the morning. It was described as a sharp chest pain that was substernal. It was nonradiating, and did feel like her previous UT. There was some diaphoresis, palpitations, nausea and vomiting. She states since her last discharge back at the end of May that since that time she had been having some weakness and shortness of breath. On Monday night, she had severe episode of weakness in both her legs as well as shortness of breath so bad she had to use a motorized chair while she was at [facility]. She has not followed up with her regular doctor, Dr. Ramona Sanchez, but she does have an appointment on the . She states she called Dr. Edwards's office, but did not get a return call. She also reports that she has been taking her medications as prescribed. She denies any headache, fever or chills, but did complain of a productive cough with yellowish sputum, some generalized swelling to her lower extremities, but no reported weight gain. She was admitted to the ICU after being found in SVT with a rate in the 190s. She was given a bolus of Cardizem, and initiated on Cardizem drip. She has since been evaluated by Cardiology. They have stopped her Cardizem drip, discontinued her flecainide and placed her on INCOMPLETE REPORT -- DICTATION ENDED HERE Dictated by MISSY Matias for Sanchez Vincent MD cc: Sanchez Vincent MD
[2019-07-01] MEDS: TYLENOL PO PRN (13:01)
[2019-07-01] MEDS ORDERED: COZAAR PO ONE (14:20)
[2019-07-01] MEDS: MORPHINE IV PRN ×2 (15:12→20:03)
--- NOTE | 2019-07-01 15:16 | HISTORY AND PHYSICAL ---
ADDENDUM REPORT: CHIEF COMPLAINT: Shortness of breath. HISTORY OF PRESENT ILLNESS: This is a 54-year-old female who came in for evaluation. She has shortness of breath. She has heart failure. She has a history of atrial fibrillation, SVT. She came in with progressive shortness of breath. Her last echocardiogram showed an EF of 40% to 45%. Her myocardial perfusion scan showed EF less than that. In any case, she was in chest pain. She had an irregular heartbeat. EKG showed, I guess her most recent one just was a normal rhythm, but I think she had gone into SVT. She was placed on a Cardizem drip and spontaneously converted. Cardiology has evaluated the patient, and they have adjusted her medications. This is not a new issue for her. She had previously been on Cardizem and flecainide. She was also in a degree of heart failure. PHYSICAL EXAMINATION: On exam, she has some trace edema. Mild rales at the bases, but otherwise negative. ASSESSMENT AND PLAN: 1. Supraventricular tachycardia. She has been placed on metoprolol and amiodarone, and she will need a close followup with electrophysiology. 2. Congestive heart failure. We will continue diuresis and follow. 3. Hypertension. It is not well controlled, but Dr. Hicks has started losartan and metoprolol on her. She is also on Lasix, so we will continue to follow closely. This is a [id number] encounter note with MISSY Matias, 35 minutes critical care time for supraventricular tachycardia requiring IV Cardizem. cc: Sanchez Vincent MD
[2019-07-01] MEDS: HUMALOG SUBQ SCH ×2 (16:05→20:15)
[2019-07-01] MEDS: LABETALOL IV PRN (16:26)
--- NOTE | 2019-07-01 18:48 | EKG Report ---
Test Performed on : 07/01/2019 08:41:29 AM Test Reason : cp Blood Pressure : / mmHG Vent. Rate : 191 BPM Atrial Rate : 053 BPM P-R Int : 000 ms QRS Dur : 098 ms QT Int : 272 ms P-R-T Axes : 000 -32 112 degrees QTc Int : 485 ms Supraventricular tachycardia. with occasional premature ventricular complexes. Left axis deviation Septal infarct (cited on or before 19-JUN-2019) Abnormal ECG When compared with ECG of 01-JUL-2019 07:23, (Unconfirmed) premature ventricular complexes. are now present Vent. rate has increased BY 97 BPM Unconfirmed Result
--- NOTE | 2019-07-01 18:49 | EKG Report ---
Test Performed on : 07/01/2019 08:41:52 AM Test Reason : cp Blood Pressure : / mmHG Vent. Rate : 191 BPM Atrial Rate : 138 BPM P-R Int : 000 ms QRS Dur : 100 ms QT Int : 238 ms P-R-T Axes : 000 -36 125 degrees QTc Int : 424 ms Supraventricular tachycardia. with occasional premature ventricular complexes. Left axis deviation Septal infarct (cited on or before 01-JUL-2019) Abnormal ECG When compared with ECG of 01-JUL-2019 08:41, (Unconfirmed) No significant change was found Unconfirmed Result
--- NOTE | 2019-07-01 18:55 | EKG Report ---
Test Performed on : 07/01/2019 08:47:41 AM Test Reason : cp/svt Blood Pressure : / mmHG Vent. Rate : 094 BPM Atrial Rate : 094 BPM P-R Int : 190 ms QRS Dur : 084 ms QT Int : 316 ms P-R-T Axes : 055 -21 076 degrees QTc Int : 395 ms Normal sinus rhythm. with sinus arrhythmia. Normal ECG When compared with ECG of 01-JUL-2019 08:41, (Unconfirmed) premature ventricular complexes. are no longer present Vent. rate has decreased BY 97 BPM Nonspecific T wave abnormality no longer evident in Lateral leads Unconfirmed Result
--- NOTE | 2019-07-01 19:07 | HISTORY AND PHYSICAL ---
ADDENDUM/CONTINUATION: The patient's medications have been adjusted by Cardiology. He will be continued to be monitored in the ICU. PAST MEDICAL HISTORY: 1. SVT with recent admission and placement on flecainide. 2. Dilated nonischemic cardiomyopathy. Last nuclear scan on 06/19/2019 demonstrated an EF of 32%. 3. Hypertension. 4. Diabetes. 5. Reflux disease. 6. Hyperlipidemia. SOCIAL HISTORY: No illicit drug use, however she was positive for cannabinoids. She is . No children. Not use any tobacco products. FAMILY HISTORY: Diabetes, hypertension and heart disease. REVIEW OF SYSTEMS: Twelve-point review of systems completely negative except for those mentioned in HPI. PHYSICAL EXAM: HEENT: Atraumatic, normocephalic. PERRL. NECK: Supple. Trachea midline. CARDIOVASCULAR: S1, S2 appreciated. No murmurs, gallops, rubs noted. RESPIRATORY: Lung sounds clear bilaterally. GI: Soft, nontender, nondistended. Positive bowel sounds 4 quads. SKIN: Warm, dry and intact. NEURO: No focal deficits noted some. DIAGNOSTIC DATA: Chest x-ray, stable cardiomegaly with mild pulmonary vascular congestion. EKG showing SVT at 191 beats per minute. Followup shows normal sinus rhythm. LABORATORY DATA: White count 6, hematocrit 31, platelet count of 467,000. Sodium 140, potassium 3.8, BUN 44, creatinine 2.4, AST 69, ALT 54. ProBNP greater than 13,000. ASSESSMENT AND PLAN: 1. Supraventricular tachycardia. The patient has already been evaluated by Cardiology. She has been taken off her Cardizem drip. They discontinued her flecainide. They placed her on metoprolol 12.5 mg every 6 hours, restarted her losartan and initiated diuresis. Will continue to monitor in the ICU on telemetry and they would like to have her follow up with electrophysiology service. 2. Dilated nonischemic cardiomyopathy. Continue with medications as per Cardiology. 3. Diabetes mellitus. Will place her on sliding scale insulin and pattern blood sugars. 4. Hypertension. Continue home medications. 5. Gastroesophageal reflux disease. 6. Hyperlipidemia. 7. Known coronary artery disease status post myocardial infarction in or . Patient did not report having any stenting done. 8. Further recommendation to follow physician evaluation, laboratory and diagnostic data. Dictated by MISSY Matias for Sanchez Vincent MD cc: Sanchez Vincent MD
[2019-07-01] MEDS: LASIX IV SCH (20:03)
[2019-07-01] MEDS: LIPITOR PO SCH (20:03)
[2019-07-01] MEDS: CORDARONE PO SCH (20:04)
[2019-07-01] MEDS: LANTUS INSULIN SUBQ SCH (20:12)
[2019-07-02] MEDS: MORPHINE IV PRN ×6 (00:17→23:52)
[2019-07-02] MEDS: LOPRESSOR PO SCH ×2 (01:06→08:12)
[2019-07-02] MEDS: HUMALOG SUBQ SCH ×4 (06:10→22:20)
[2019-07-02 06:44] LABS: BASO# 0.08 X1000 (0.0-0.2); BASO% 1.2 % (0.0-0.8); EOS# 0.05 X1000 (0.0-0.7); EOS% 0.7 % (0.0-10.0); HEMATOCRIT 34.1 % (37.0-47.0); HEMOGLOBIN 11.1 g/dL (12.0-16.0); IMM GRAN# 0.02 X1000 (0.0-0.04); IMM GRAN% 0.3 % (0.0-0.5); LYMPH# 2.32 X1000 (1.2-3.4); LYMPH% 34.2 % (20.5-51.1); MCH 28.5 PG (27-31); MCHC 32.6 g/dL (33-37); MCV 87.4 FL (81-99); MONO# 0.57 X1000 (0.11-0.59); MONO% 8.4 % (1.7-9.3); MPV 10.4 FL (7.4-10.4); NEUT# 3.75 X1000 (1.4-6.5); NEUT% 55.2 % (42.2-75.2); PLT 495 X1000 (130-400); RDW 16.4 % (11.5-14.5); WBC 6.79 X1000 (4.8-10.8)
[2019-07-02 07:11] LABS: CALCIUM 8.8 mg/dL (8.8-10.2); CREATININE 2.5 mg/dL (0.5-0.9); POTASSIUM 3.7 mmol/L (3.5-5.1)
[2019-07-02] MEDS: LASIX IV SCH ×2 (08:11→22:20)
[2019-07-02] MEDS: CORDARONE PO SCH ×2 (08:11→22:19)
[2019-07-02] MEDS: COZAAR PO SCH (08:11)
[2019-07-02] MEDS: LANTUS INSULIN SUBQ SCH ×2 (08:12→22:21)
[2019-07-02] MEDS: LABETALOL IV PRN (09:48)
[2019-07-02] MEDS ORDERED: NORCO-5 PO PRN (11:12)
--- NOTE | 2019-07-02 11:51 | PROGRESS NOTE ---
DATE: 07/02/2019 SUBJECTIVE: She is breathing better, but she said she had a very rough night. OBJECTIVE: Vital signs: Blood pressure is 160/107, heart rate of 70, respiratory rate of 14. Temperature, I think she was afebrile, 97 degrees. Cardiovascular: Regular rate and rhythm. Pulmonary: Bilateral breath sounds clear to auscultation. Gastrointestinal: Soft, nontender, nondistended. Bowel sounds are positive. Pulmonary: She has diminished breath sounds at the bases. LABORATORY DATA: White count is 6, hemoglobin and hematocrit 11 and 34, platelets 495,000. BUN and creatinine 51 and 2.5[place] [address]. PROBLEM LIST: 1. Supraventricular tachycardia. She is rate controlled on metoprolol and amiodarone. Cardiology is following. She will need close EP followup. She has been stable though. 2. Acute congestive heart failure exacerbation which is felt to be systolic heart failure, although I do not have her echo back yet. She is on multiple medications for that and we are going to continue diuresis. 3. Hypertension which is uncontrolled. Dr. Hicks has added hydralazine and isosorbide dinitrate today. She is on losartan. She is on Lopressor. She is on amiodarone. She is on Lasix. We will continue work on blood pressure control. DISPOSITION: I think she is stable, so my plan is to transfer her to the floor, home per Cardiology recommendations and that her blood pressure is under control. cc: Sanchez Vincent MD
[2019-07-02] MEDS: ISORDIL PO SCH ×2 (12:16→16:28)
[2019-07-02] MEDS: APRESOLINE PO SCH ×2 (12:16→16:28)
--- NOTE | 2019-07-02 13:45 | CARDIOLOGY PROGRESS NOTE ---
DATE: 07/02/2019 SUBJECTIVE: The patient reports she feels better. Her breathing has improved somewhat. PHYSICAL EXAMINATION: Afebrile. Heart rate 75. Her blood pressure is 135/111. Her systolics have been predominantly in the 150 to 170s. Her I's and O's are negative around 1950 mL during or course of the hospitalization.General: She is in no acute distress. Cardiovascular: She sounds to be in a regular rate and rhythm. She has no obvious murmurs. She has no S3. She has no lower extremity edema. Her chest exam sounds clear. She has no increased work of breathing. Her abdomen is soft, nontender. PERTINENT DATA: Presently, she is maintaining sinus rhythm. She is on metoprolol 25 q.6 hours. We will changes over to 50 b.i.d. starting this evening. We will continue her on losartan. I have added in Isordil as well as hydralazine to her regimen given her renal insufficiency as well as reduced ejection fraction. Her proBNP was 21,259 today. Chemistry laboratories have been ordered for the morning. cc: Dylon Hicks MD
[2019-07-02] MEDS ORDERED: AMARYL PO SCH (17:00)
[2019-07-02] MEDS ORDERED: LOPRESSOR PO SCH (21:00)
[2019-07-02] MEDS: ZYRTEC PO SCH (22:19)
[2019-07-02] MEDS: LIPITOR PO SCH (22:19)
[2019-07-03] MEDS: LINZESS PO SCH ×2 (05:30→06:48)
[2019-07-03] MEDS: PRILOSEC PO SCH (05:31)
[2019-07-03] MEDS: MORPHINE IV PRN ×2 (05:31→12:28)
[2019-07-03 06:10] LABS: BASO# 0.05 X1000 (0.0-0.2); BASO% 0.7 % (0.0-0.8); EOS# 0.14 X1000 (0.0-0.7); EOS% 2.1 % (0.0-10.0); HEMATOCRIT 33.4 % (37.0-47.0); HEMOGLOBIN 10.9 g/dL (12.0-16.0); LYMPH# 2.19 X1000 (1.2-3.4); LYMPH% 32.4 % (20.5-51.1); MCH 28.5 PG (27-31); MCHC 32.6 g/dL (33-37); MCV 87.2 FL (81-99); MONO# 0.55 X1000 (0.11-0.59); MONO% 8.1 % (1.7-9.3); MPV 9.7 FL (7.4-10.4); NEUT# 3.83 X1000 (1.4-6.5); NEUT% 56.7 % (42.2-75.2); PLT 471 X1000 (130-400); RBC 3.83 XMIL (4.2-5.4); RDW 16.2 % (11.5-14.5); WBC 6.76 X1000 (4.8-10.8)
[2019-07-03] MEDS: HUMALOG SUBQ SCH ×4 (06:47→22:18)
[2019-07-03 07:02] LABS: ALBUMIN 3.5 g/dL (3.5-5.0); CALCIUM 8.9 mg/dL (8.8-10.2); CREATININE 2.5 mg/dL (0.5-0.9); PHOSPHORUS 5.3 mg/dL (2.7-4.5); POTASSIUM 3.2 mmol/L (3.5-5.1)
[2019-07-03] MEDS ORDERED: JANUVIA PO SCH (09:00)
[2019-07-03] MEDS: FISH OIL CONCENTRATE PO SCH (09:21)
[2019-07-03] MEDS: COZAAR PO SCH (09:21)
[2019-07-03] MEDS: APRESOLINE PO SCH ×3 (09:21→16:46)
[2019-07-03] MEDS: ISORDIL PO SCH ×3 (09:21→16:46)
[2019-07-03] MEDS: LASIX IV SCH ×2 (09:21→22:19)
[2019-07-03] MEDS ORDERED: KLOR-CON PO ONE (09:21)
[2019-07-03] MEDS: NEURONTIN PO SCH (09:21)
[2019-07-03] MEDS: CORDARONE PO SCH (09:22)
--- NOTE | 2019-07-03 09:58 | Diag Imaging Result Doc PS360 ---
CHEST-2 VIEWS - 07/03/2019 INDICATION: hypoxia COMPARISON: 07/01/2019 FINDINGS: There is mild cardiomegaly. Pulmonary vascularity is normal. No infiltrates or edema. No large pleural effusion. IMPRESSION: Mild cardiomegaly. Electronically signed by Bahman Moreno 07/03/2019 9:56 AM
--- NOTE | 2019-07-03 15:15 | PROGRESS NOTE ---
DATE: 07/03/2019 SUBJECTIVE: The patient feels better. She is breathing better. She is on room air. Her in's and out's, she has had almost 4 L out. Her weight is 212 but started at 195, so it went up. Unchanged from yesterday, though. OBJECTIVE: Cardiovascular: Regular rate and rhythm. Pulmonary: Bilateral breath sounds. Clear to auscultation. GI: Soft, nontender, nondistended. Bowel sounds were positive. LABORATORY DATA: White count 6, hemoglobin and hematocrit 10 and 33, platelets 471,000. Potassium 3.2, creatinine 2.5. Glucose was down to 53. Chest x-ray shows mild cardiomegaly. PROBLEM LIST: 1. Supraventricular tachycardia. That is controlled on metoprolol, amiodarone. Plan will be for EP follow up. 2. Acute congestive heart failure exacerbation, systolic. We will continue diuretics and follow. She is on multiple medications. Continue diuretics. 3. Hypertension is overall controlled. 4. Disposition. I certainly think she could probably go home. The only thing is her proBNP has been elevated, but she has renal insufficiency. 5. Hypokalemia. We will supplement and follow. 6. Disposition. Home when cardiology feels patient is stable to be discharged. I will defer to them. cc: Sanchez Vincent MD
[2019-07-03] MEDS: TYLENOL PO PRN (22:17)
[2019-07-03] MEDS: ZYRTEC PO SCH (22:18)
[2019-07-03] MEDS: LIPITOR PO SCH (22:18)
[2019-07-03] MEDS: COREG PO SCH (22:24)
[2019-07-03] MEDS: LANTUS INSULIN SUBQ SCH (22:25)
--- NOTE | 2019-07-04 04:31 | CARDIOLOGY PROGRESS NOTE ---
DATE: 07/03/2019 SUBJECTIVE: Ms. Rodriguez reports she is doing better. She feels her breathing has improved. She has no orthopnea. No heart racing. OBJECTIVE: Vital signs: Afebrile. Heart rate 74, blood pressure 136/84. Her I's and O's are somewhat difficult to track, but she does appear to have a significant urine output. General: She is in no acute distress. Cardiovascular: She sounds to be in a regular rate and rhythm. She has no obvious murmurs. She has no S3. She has no lower extremity edema. Pulmonary: Her chest exam sounds clear bilaterally. No increased work of breathing. Abdomen: Soft, nontender. PERTINENT DATA: Her sodium is 144, potassium 3.2, BUN 56, creatinine is 2.5, which is roughly stable from yesterday. ASSESSMENT: Ms Rodriguez is a 54-year-old female who presented in heart failure and was found to have an episode of supraventricular tachycardia. PLAN: We will continue on the amiodarone. I will actually decrease it to a daily dose at 400 mg. She has already been arranged for EP followup. We will continue with IV diuretics. I have added in a beta-juanjo today and increased her ISDN. She is presently on hydralazine, losartan, ISDN, and as said before, a low dose of Coreg. cc: Dylon Hicks MD
[2019-07-04] MEDS: PRILOSEC PO SCH (06:21)
[2019-07-04] MEDS: LINZESS PO SCH (06:21)
[2019-07-04] MEDS: HUMALOG SUBQ SCH ×4 (06:22→20:57)
[2019-07-04 07:27] LABS: ALBUMIN 3.7 g/dL (3.5-5.0); CALCIUM 8.7 mg/dL (8.8-10.2); CREATININE 2.3 mg/dL (0.5-0.9); PHOSPHORUS 3.9 mg/dL (2.7-4.5); POTASSIUM 3.4 mmol/L (3.5-5.1)
--- NOTE | 2019-07-04 09:23 | PROGRESS NOTE ---
DATE: 07/04/2019 SUBJECTIVE: Ms. Rodriguez was admitted on 07/01/2019. She was found with SVT in the rate of the 190s, given a bolus of Cardizem, Cardizem drip, followed by Cardiology. She reports that she is feeling better. Breathing is comfortable and is asking to go home. OBJECTIVE: Vital Signs: Temperature is 98.1 degrees, pulse 83, respirations 14, blood pressure 143/82. Eyes: Pupils are equal and round. Lungs: Clear in all lung watkins. Cardiovascular exam: Regular rhythm and rate without murmur or S3. Last 3 blood sugars 64, 142 and 57. ASSESSMENT AND PLAN: Dr. Hicks is followin. Presented with heart failure. Found to have an episode of supraventricular tachycardia. She is on amiodarone. We will continue daily dose of 400 mg. She is arranged for Electrophysiology follow-up. We will continue her intravenous diuretics and beta juanjo was added. Cardiology also increased her ISDN, presently on hydralazine, losartan, and low dose of Coreg. 2. Acute congestive heart failure exacerbation. She has congestive heart failure with reduced ejection fraction. Continue present regimen. 3. Hypertension. 4. Disposition: Hopefully can go home soon. Her proBNP is elevated. We will see what Cardiology says. She has had some renal insufficiency. Her creatinine is down to 2.3 and is coming down; it was 2.5 on arrival. Her electrolytes look good. A little bit of low potassium. Magnesium was good at 3.9. REVIEW OF ORDERS: On Lipitor 20 mg at bedtime, Zyrtec 10 mg at bedtime, amiodarone 400 mg p.o. daily, Coreg 3.125 mg b.i.d., Neurontin 300 mg a day, Apresoline 25 mg t.i.d., isosorbide dinitrate 20 mg p.o. t.i.d., Linzess 145 mcg p.o. daily, Cozaar 100 mg daily, omega-3 fatty acids 1000 mg daily, was given some potassium yesterday. I am going to go ahead and give another 40 mEq of KCl. cc: Frank Garcia MD
[2019-07-04] MEDS: COREG PO SCH ×2 (10:20→20:57)
[2019-07-04] MEDS: ISORDIL PO SCH ×3 (10:20→18:09)
[2019-07-04] MEDS: CORDARONE PO SCH (10:21)
[2019-07-04] MEDS: LASIX IV SCH ×2 (10:21→20:57)
[2019-07-04] MEDS: NEURONTIN PO SCH (10:21)
[2019-07-04] MEDS: APRESOLINE PO SCH ×3 (10:21→18:08)
[2019-07-04] MEDS: COZAAR PO SCH (10:21)
[2019-07-04] MEDS: LANTUS INSULIN SUBQ SCH ×2 (10:21→20:58)
[2019-07-04] MEDS: FISH OIL CONCENTRATE PO SCH (10:21)
[2019-07-04] MEDS: KLOR-CON PO SCH (12:39)
[2019-07-04] MEDS: LIPITOR PO SCH (20:57)
[2019-07-04] MEDS: ZYRTEC PO SCH (20:57)
[2019-07-05] MEDS: TYLENOL PO PRN (03:54)
[2019-07-05] MEDS: LABETALOL IV PRN (04:21)
[2019-07-05] MEDS: HUMALOG SUBQ SCH ×2 (06:11→12:24)
[2019-07-05] MEDS: PRILOSEC PO SCH (06:11)
[2019-07-05] MEDS: LINZESS PO SCH (06:12)
[2019-07-05 07:15] LABS: CALCIUM 9.1 mg/dL (8.8-10.2); CREATININE 2.1 mg/dL (0.5-0.9); MAGNESIUM 1.9 mg/dL (1.5-2.7); POTASSIUM 3.5 mmol/L (3.5-5.1)
[2019-07-05 07:22] LABS: ALBUMIN 3.6 g/dL (3.5-5.0); CALCIUM 9.4 mg/dL (8.8-10.2); CREATININE 2.4 mg/dL (0.5-0.9); PHOSPHORUS 4.2 mg/dL (2.7-4.5)
[2019-07-05] MEDS: NEURONTIN PO SCH (08:33)
[2019-07-05] MEDS: COREG PO SCH (08:33)
[2019-07-05] MEDS: COZAAR PO SCH (08:33)
[2019-07-05] MEDS: CORDARONE PO SCH (08:34)
[2019-07-05] MEDS: FISH OIL CONCENTRATE PO SCH (08:35)
[2019-07-05] MEDS: ISORDIL PO SCH ×2 (08:35→14:25)
[2019-07-05] MEDS: LANTUS INSULIN SUBQ SCH (08:35)
[2019-07-05] MEDS: APRESOLINE PO SCH ×2 (08:35→14:24)
[2019-07-05] MEDS: KLOR-CON PO SCH (08:35)
[2019-07-05] MEDS ORDERED: LASIX PO SCH (09:00)
[2019-07-05 11:53] VITALS: BP 136/82
[2019-07-05] MEDS: MORPHINE IV PRN (12:24)
--- NOTE | 2019-07-05 12:41 | PROGRESS NOTE ---
DATE: 07/05/2019 SUBJECTIVE: Patient feels good and denies having any acute complaints this morning. OBJECTIVE: Vital Signs: Temperature 98.5 degrees, pulse 76 per minute, respiratory rate 17 per minute, blood pressure 144/87, pulse oximetry 95% on room air. General: Patient is alert and oriented x3. She does not appear to be in any acute distress. Cardiovascular System: First and 2nd heart sounds are audible without any murmurs or gallops. Respiratory System: No respiratory distress noted. Bilateral lung air entry is good without any rales or rhonchi. Gastrointestinal: Abdomen is benign. Musculoskeletal: No deformities are present. There is no pedal edema. DIAGNOSTIC DATA: CBC shows WBC count of 6.76, hemoglobin 10.9, hematocrit 33.4, and platelet count of 471,000. In comparison, her hemoglobin and hematocrit were 10.2 and 31.2 on 07/01/2019. Basic metabolic panel done this morning showed BUN of 47 and creatinine 2.1. Rest of the BMP is nondiagnostic. Chest x-ray done on 07/03/2019 showed mild cardiomegaly. IMPRESSION: 1. Paroxysmal supraventricular tachycardia that has now improved. 2. Acute on chronic systolic congestive heart failure. 3. Type 2 diabetes mellitus. 4. Hypertension. 5. Acute kidney injury on chronic kidney disease. PLAN: The patient will be continued on amiodarone 400 mg orally once daily as per Cardiology and will follow up with them as outpatient and I believe has been scheduled to see Electrophysiology as well. Her blood pressure has been within desirable range and her glucose levels are also under control. As far as her fluid status is concerned, I am going to continue with the oral furosemide 40 mg orally once daily and monitor her kidney function. Her creatinine levels have improved from 2.5 on admission to 2.1 this morning. I believe she can soon be able to go home if remains stable. cc: Juanito Alston MD MTDD
[2019-07-05] MEDS ORDERED: COREG PO SCH (21:00)
[2019-07-06] MEDS ORDERED: CORDARONE PO SCH (09:00)
--- NOTE | 2019-07-06 14:57 | DISCHARGE SUMMARY ---
ADMISSION DATE: 07/01/2019 DISCHARGE DATE: 07/05/2019 DISCHARGE DIAGNOSES: 1. Paroxysmal supraventricular tachycardia. 2. Acute on chronic systolic congestive heart failure. 3. Type 2 diabetes mellitus. 4. Hypertension. 5. Acute kidney injury on chronic kidney disease. HOSPITAL COURSE: Ms. Rodriguez is a 54-year-old female who was admitted to the hospital on 07/01/2019 with PSVT and heart failure. She was admitted to the hospital and was consulted by Cardiology, who have placed her on amiodarone. She has converted back to sinus rhythm and has been doing okay. She was treated with IV diuretics with which her congestive heart failure fluid overload was treated. Her overall condition has improved and therefore she is going to be discharged home today. DISCHARGE MEDICATIONS: 1. Carvedilol 12.5 mg orally twice daily. 2. Amiodarone 200 mg orally once daily. 3. Furosemide 40 mg orally once daily. 4. Potassium chloride 20 mEq orally twice daily. 5. Atorvastatin 20 mg orally once daily at bedtime. 6. Losartan 100 mg orally once daily. 7. Sertraline 10 mg orally once daily. 8. Vitamin D3 23753 units orally once a week. 9. Linzess 145 mcg orally once daily. 10. Hydralazine 25 mg orally 3 times a day. 11. Lantus insulin 35 units subcutaneously every 12 hours. 12. Isosorbide dinitrate 20 mg orally 3 times a day. 13. Januvia 100 mg orally once daily. 14. Omeprazole 40 mg orally once daily. 15. Gabapentin 300 mg orally once daily. FOLLOW-UP: She will follow up with her PCP in approximately one week and follow with Dr. Hicks from Cardiology Service in approximately 2 to 3 weeks. cc: Juanito Alston MD
[2019-07-08] MEDS ORDERED: VITAMIN D PO SCH (09:00)
== END 2019-07-05 16:46 | disposition home or self-care (01) | DRG 308 ==
LOC: SUPCPDRO → ED 07:11 → SUATTDRO 07:12 → ICU 07:12 → 3N 07-02 14:35
PROVIDERS: ATTEND Internal Medicine

== ENCOUNTER 2019-12-31 01:40 | Inpatient (IN) ==
[2019-12-31] MEDS ORDERED: SODIUM CHLORIDE 0.9% INJ ONE ×2 (01:57)
[2019-12-31] MEDS ORDERED: NITROGLYCERIN SL ONE (01:57)
[2019-12-31] MEDS ORDERED: PEPCID IV ONE (01:57)
[2019-12-31] MEDS ORDERED: PROTONIX IV ONE (01:57)
[2019-12-31] MEDS ORDERED: NITROGLYCERIN TOP ONE (01:57)
[2019-12-31] MEDS ORDERED: ZOFRAN IV ONE (01:57)
--- NOTE | 2019-12-31 02:05 | PROVIDER DOCUMENTATION ---
HPI-Chest Pain - General Chief Complaint: Chest Pain Stated Complaint: CP Time Seen by Provider: 12/31/19 01:50 Source: patient, EMS Allergies/Adverse Reactions: Patient Allergies Allergy/AdvReac Type Severity Reaction Status Date / Time metformin Allergy SWELLING Verified 07/01/19 07:30 Home Medications: Home Medication List Medication Instructions Recorded Confirmed Last Taken Type Losartan Potassium 1 tab PO DAILY 11/19/15 11/20/19 11/20/19 05:45 History Glimepiride 4 mg PO BID 06/02/18 11/20/19 11/20/19 05:45 History Sitagliptin Phosphate [Januvia] 100 mg PO DAILY 06/02/18 11/20/19 11/20/19 05:45 History Omeprazole 1 tab PO DAILY@0600 06/26/18 11/20/19 11/20/19 05:45 History Insulin Glargine [Basaglar 35 units SQ BID 03/17/19 11/20/19 11/20/19 05:45 History [Nonformulary]] Gabapentin 300 mg PO DAILY 06/17/19 11/20/19 11/20/19 05:45 History Hydrocodone/Acetaminophen 1 tab PO Q6H PRN 06/17/19 11/20/19 11/19/19 16:00 History [Hydrocodone-Acetamin 5-325 mg] Amiodarone [Cordarone] 200 mg PO DAILY #30 tab 07/05/19 11/20/19 11/20/19 05:45 Rx Atorvastatin Calcium [Lipitor] 20 mg PO QHS #30 tab 07/05/19 11/20/19 11/20/19 05:45 Rx Carvedilol [Coreg] 12.5 mg PO BID #60 tab 07/05/19 11/20/19 11/20/19 05:45 Rx Furosemide [Lasix] 40 mg PO DAILY #30 tab 07/05/19 11/20/19 11/20/19 05:45 Rx Hydralazine [Apresoline] 25 mg PO TID #90 tab 07/05/19 11/20/19 11/20/19 05:45 Rx Isosorbide Dinitrate [Isordil] 20 mg PO TID #90 tab 07/05/19 11/20/19 11/13/19 05:45 Rx Potassium Chloride E.r. [Klor-Con] 20 meq PO BID #60 tab 07/05/19 11/20/19 11/20/19 05:45 Rx Albuterol 2.5MG/Ipratrop 0.5MG 3 ml INH Q6H PRN PRN #30 neb 10/11/19 11/20/19 Unknown Rx [Duoneb] - History of Present Illness-CP Location: reports: substernal Chest Pain Radiation: reports: no radiation Quality of Pain: reports: tightness Severity in ED: moderate Onset/Duration: 1 hour ago Timing: still present Context/Activities at Onset: reports: light activity Modifying Factors: improves with: nothing Associated Symptoms: reports: diaphoresis (EARLIER TODAY), fatigue, shortness of breath, weakness. denies: heartburn Nitro Today/Relief: 0.4 mg x 2, provided by EMS, mild relief Aspirin Treatment Today: 81 mg x 4, provided by EMS Similar Symptoms Previously?: Yes Review of Systems - Adult - REVIEW OF SYSTEMS - ADULT Constitutional: reports: no symptoms reported, fatique. denies: chills, fever, night sweats Eyes: reports: no symptoms reported Ears, Nose, Mouth & Throat: reports: no symptoms reported Cardiovascular: reports: see HPI Respiratory: reports: no symptoms reported Gastrointestinal: reports: no symptoms reported Genitourinary: reports: no symptoms reported Musculoskeletal: reports: no symptoms reported Integumentary: reports: no symptoms reported Neurological: reports: no symptoms reported Psychiatric: reports: no symptoms reported Endocrine: reports: no symptoms reported Hematologic/Lymphatic: reports: no symptoms reported Allergic/Immunologic: reports: no symptoms reported All Other Systems: Reviewed and Negative Past History - Adult - PAST MEDICAL HISTORY-ADULT Review of Records: reports: Nursing Assessment Review, Medications Reviewed, Social history reviewed & non-contributory. Major Childhood Illnesses: reports: denies history Cardiovascular: reports: arrhythmia (SVT), HTN, hyperlipidemia, GA Respiratory: reports: denies history Gastrointestinal: reports: GERD, GI bleed Obstetrical/Gynecological: reports: denies history Genitourinary: reports: denies history Musculoskeletal: reports: denies history Neurological: reports: denies history Endocrine/Immune: reports: Diabetes Other Conditions: reports: denies history - PRIOR SURGERIES/PROCEDURES Surgical/Procedure History: reports: cholecystectomy, orthopedic (extremity) (left ankle), breast (reduction) - IMMUNIZATION STATUS Childhood Immunizations: See Nurse Assessment Flu Vaccine: See Nurse Assessment - FAMILY HISTORY Family History: CAD over 55 yo Physical Exam-General - PHYSICAL EXAM-ADULT Initial Vital Signs Reviewed: Yes - CONSTITUTIONAL General Appearance: alert, moderate distress - EYES Eyes: PERRL/EOMI - HEAD, EARS, NOSE, MOUTH & THROAT HENMT: normocephalic/atraumatic, moist mucous membranes - NECK Neck: non-tender, full range of motion, supple - RESPIRATORY Respiratory: chest non-tender, lungs clear, normal breath sounds - CARDIOVASCULAR Cardiovascular: normal peripheral pulses, regular rate, rhythm, no edema, no JVD , no murmur - GASTROINTESTINAL (ABDOMEN) Abdominal Exam: normal bowel sounds, non tender, soft - MUSCULOSKELETAL Extremity: normal range of motion, non-tender, normal gait, normal inspection, no pedal edema - SKIN Integumentary: normal color, normal turgor, warm/dry - NEUROLOGIC Neurologic: flat hammerer II-XII nml as tested, grossly normal, no motor/sensory deficits - PSYCHIATRIC Psych/Mental Status: normal mood/affect, normal thought content, normal thought process, oriented x 3 - HEART Score HEART Score: History: Highly Suspicious HEART Score: ECG: Non-Specific Repolarization Disturbance/LBBB/PM HEART Score: Age: 45-65 Years HEART Score: Risk Factors for Atherosclerotic Disease: 1 or 2 Risk Factors HEART Score: Troponin: 1-3x Normal Limit Total HEART Score:: 6 Progress - PLAN OF CARE/RESULTS Progress/Plan/Lab Results: Vital Signs - 8 hr 12/31/19 02:17 Temperature 98.0 F Pulse Rate 72 Respiratory Rate 20 Blood Pressure 176/108 O2 Sat by Pulse Oximetry 98 12/31/19 02:47 Influenza Screen - Final Nasopharyngeal Laboratory Results - last 24 hr 12/31/19 12/31/19 12/31/19 02:05 02:05 02:05 WBC RBC Hgb Hct MCV MCH MCHC RDW Std Deviation Plt Count MPV Immature Gran % (Auto) Neut % (Auto) Lymph % (Auto) Moffat % (Auto) Eos % (Auto) Baso % (Auto) Immature Gran # (Auto) Neut # (Auto) Lymph # (Auto) Moffat # (Auto) Eos # (Auto) Baso # (Auto) D-Dimer, Quantitative Sodium 139 Potassium 3.8 Chloride 102 Carbon Dioxide 23 L Anion Gap 14 BUN 39 H Creatinine 1.8 H Estimated GFR/1.73 m2 35 BUN/Creatinine Ratio 22 Glucose 124 H Calculated Osmolality 288 Calcium 9.6 Magnesium 2.0 Troponin T High Sens 135 H* Urine Source Urine Color Urine Turbidity Urine pH Ur Specific [place] Urine Protein Ur Glucose (Stick) Ur Ketones (Stick) Urine Blood Urine Nitrite Urine Bilirubin Urobilinogen Dipstick Urine Leukocytes Urine WBC (Auto) Urine RBC (Auto) U Epithel Cells (Auto) Urine Bacteria (Auto) 12/31/19 12/31/19 12/31/19 02:05 02:05 02:13 WBC 10.27 RBC 3.98 L Hgb 11.6 L Hct 37.7 MCV 94.7 MCH 29.1 MCHC 30.8 L RDW Std Deviation 14.3 Plt Count 287 MPV 10.4 Immature Gran % (Auto) 0.4 Neut % (Auto) 73.5 Lymph % (Auto) 16.7 L Moffat % (Auto) 7.4 Eos % (Auto) 1.7 Baso % (Auto) 0.3 Immature Gran # (Auto) 0.04 Neut # (Auto) 7.55 H Lymph # (Auto) 1.72 Moffat # (Auto) 0.76 H Eos # (Auto) 0.17 Baso # (Auto) 0.03 D-Dimer, Quantitative 1.04 H Sodium Potassium Chloride Carbon Dioxide Anion Gap BUN Creatinine Estimated GFR/1.73 m2 BUN/Creatinine Ratio Glucose Calculated Osmolality Calcium Magnesium Troponin T High Sens Urine Source CLEAN CATCH Urine Color STRAW Urine Turbidity CLEAR Urine pH 6.5 Ur Specific [place] 1.010 Urine Protein 300 A Ur Glucose (Stick) NEGATIVE Ur Ketones (Stick) NEGATIVE Urine Blood NEGATIVE Urine Nitrite NEGATIVE Urine Bilirubin NEGATIVE Urobilinogen Dipstick NORMAL Urine Leukocytes NEGATIVE Urine WBC (Auto) <10 Urine RBC (Auto) <10 U Epithel Cells (Auto) <10 Urine Bacteria (Auto) NEGATIVE Orders Category Date Time Status Cardiac Monitoring DIRECTED Care 12/31/19 01:56 Active Saline Loc NOW Care 12/31/19 01:56 Active Update & Confirm Home Medicati ROUTINE Care 12/31/19 04:05 Active CHEST-PORTABLE [RAD] Stat Exams 12/31/19 01:57 Taken LUNG SCAN / VQ [NM] Stat Exams 12/31/19 03:52 Ordered BASIC METABOLIC PANEL [CHEM] Stat Lab 12/31/19 02:05 Completed CBC WITH ELECTRONIC DIFF [HEME] Stat Lab 12/31/19 02:05 Completed D-DIMER [COAG] Stat Lab 12/31/19 02:05 Completed INFLUENZA SCREEN A/B Stat Lab 12/31/19 02:47 Completed MAGNESIUM [CHEM] Stat Lab 12/31/19 02:05 Completed TROPONIN T HIGH SENSITIVITY Stat Lab 12/31/19 02:05 Completed URINALYSIS W/POSS RFLX CULT [URINALYSIS] Stat Lab 12/31/19 02:13 Completed Famotidine [Pepcid] Med 12/31/19 01:57 Discontinued 20 mg IV NOW ONE Metoprolol [Lopressor] Med 12/31/19 03:52 Discontinued 25 mg PO NOW ONE Nitroglycerin Med 12/31/19 01:57 Discontinued 1 inch TOP NOW ONE Nitroglycerin 50 mg/D5w Med 12/31/19 03:00 Active 50 mg in 250 ml IV As Directed mls/hr Nitroglycerin Sl [Nitroglycerin] Med 12/31/19 01:57 Discontinued 0.4 mg SL NOW ONE Ondansetron [Zofran] Med 12/31/19 01:57 Discontinued 4 mg IV NOW ONE Pantoprazole [Protonix] Med 12/31/19 01:57 Discontinued 40 mg IV NOW ONE Sodium Chloride 0.9% Med 12/31/19 01:57 Discontinued 10 ml INJ NOW ONE Sodium Chloride 0.9% Med 12/31/19 01:57 Discontinued 5 - 10 ml INJ NOW ONE EKG [EKG] Stat Ther 12/31/19 01:56 Draft Result Diagrams: 12/31/19 02:05 12/31/19 02:05 - REASSESSMENT Reassessment #1 Time Reassessed: 02:55 Status: improving (cp better again with sl nitro. sys 160/ . order nitro gtt) - EKG 1 Time of EKG reading by physician:: 02:02 EKG Read and Signed by:: Tulio Yuen EKG Interpretation (*Must complete 3 of following elements*): Abnormal Rate: 71 Rhythm: NSR Lamar: normal QRS: normal OR Interval: normal ST Wave: non-specific ST changes (INF INFARCT, AGE UNKNOWN, NSR) - CONSULTS/PCP/HOSPITALIST Notification #1 *Consult/PCP/Hospitalist*: DR MARIE Time Discussed: 03:50 Consult Disposition: Admit (WILL SEE, GET VQ NOW) #2 Consult: DR BELTRAN Time Discussed: 04:02 Consult Disposition: Admit Departure - Departure Date of Disposition Decision: 12/31/19 Time of Disposition Decision: 04:28 DIAGNOSIS: Chest pain, Non-STEMI (non-ST elevated myocardial infarction), Elevated d- dimer, Renal insufficiency, History of peptic ulcer disease Disposition: ADMITTED INPATIENT 09 Certified Medical Emergency: Emergent Condition: Fair Referrals and Follow-Ups: Ramona Sanchez [Primary Care Provider] - - Critical Care Note This patient required my direct & personal management of CC.: Yes Total Time (mins): 30 Critical Care Statement: This patient required my direct personal management to treat or rule out processes, the absence of which, could potentiallly result in sudden, clinically significant life or limb threatening deterioration. Attestation - Physician/ BRENDA Attestation The physician spent face to face time with patient:: Yes Advanced Practice Provider documentation review:: Supervising physician onsite and consulted in the evaluation and care of this patient. The physician did have a face to face encounter with the patient.
[2019-12-31 02:21] LABS: URINE SOURCE CLEAN CATCH
--- NOTE | 2019-12-31 02:21 | EKG Report ---
Test Performed on : 12/31/2019 01:55:35 AM Test Reason : CP Blood Pressure : / mmHG Vent. Rate : 071 BPM Atrial Rate : 071 BPM P-R Int : 194 ms QRS Dur : 094 ms QT Int : 430 ms P-R-T Axes : 027 -18 070 degrees QTc Int : 467 ms Normal sinus rhythm. Inferior infarct , age undetermined Abnormal ECG When compared with ECG of 11-OCT-2019 16:04, Inferior infarct is now present Unconfirmed Result
[2019-12-31 02:59] LABS: CALCIUM 9.6 mg/dL (8.8-10.2); CREATININE 1.8 mg/dL (0.5-0.9); POTASSIUM 3.8 mmol/L (3.5-5.1)
[2019-12-31] MEDS ORDERED: NITROGLYCERIN 50 MG/D5W 50 MG/250 ML IV.SOLN IV SCH (03:00)
[2019-12-31 03:11] LABS: BILIRUBIN URINE NEGATIVE (NEGATIVE); BLOOD URINE NEGATIVE (NEGATIVE); COLOR STRAW; GLUCOSE URINE NEGATIVE (NEGATIVE); KETONE URINE NEGATIVE (NEGATIVE); LEUKOCYTES URINE NEGATIVE (NEGATIVE); NITRITE URINE NEGATIVE (NEGATIVE); PH URINE 6.5; PROTEIN URINE 300 mg/dL (NEGATIVE); TURBIDITY URINE CLEAR (CLEAR); UROBILINOGEN URINE NORMAL (NORMAL)
[2019-12-31 03:13] LABS: UR EPITHELIAL CELLS <10 /HPF (<10); URINE BACTERIA NEGATIVE /HPF; URINE RBC <10 /HPF (<10); URINE WBC <10 /HPF (<10)
[2019-12-31 03:29] LABS: BASO# 0.03 X1000 (0.0-0.2); BASO% 0.3 % (0.0-0.8); EOS# 0.17 X1000 (0.0-0.7); EOS% 1.7 % (0.0-10.0); HEMATOCRIT 37.7 % (37.0-47.0); HEMOGLOBIN 11.6 g/dL (12.0-16.0); IMM GRAN# 0.04 X1000 (0.0-0.04); IMM GRAN% 0.4 % (0.0-0.5); LYMPH# 1.72 X1000 (1.2-3.4); LYMPH% 16.7 % (20.5-51.1); MCH 29.1 PG (27-31); MCHC 30.8 g/dL (33-37); MCV 94.7 FL (81-99); MONO# 0.76 X1000 (0.11-0.59); MONO% 7.4 % (1.7-9.3); MPV 10.4 FL (7.4-10.4); NEUT# 7.55 X1000 (1.4-6.5); NEUT% 73.5 % (42.2-75.2); PLT 287 X1000 (130-400); RBC 3.98 XMIL (4.2-5.4); RDW 14.3 % (11.5-14.5); WBC 10.27 X1000 (4.8-10.8)
[2019-12-31] MEDS ORDERED: LOPRESSOR PO ONE (03:52)
[2019-12-31] MEDS ORDERED: HEPARIN IV ONE ×2 (04:32)
[2019-12-31] MEDS ORDERED: HEPARIN 25,000 UNITS/D5W 25,000 UNIT/250 ML IV.SOLN IV SCH (04:45)
[2019-12-31] MEDS ORDERED: HEPARIN 25,000 UNITS/1/2NS 25,000 UNIT/250 ML IV.SOLN IV SCH (05:30)
--- NOTE | 2019-12-31 05:41 | Diag Imaging Result Doc PS360 ---
EXAM: CHEST-PORTABLE HISTORY: CO TECHNIQUE: Single view COMPARISON: 11/07/2019 FINDINGS: Poor inspiratory effort. The heart is enlarged. There is right hilar prominence and mild vascular distention. No pleural effusions identified. IMPRESSION: Poor inspiratory effort with no definite change. Follow-up PA and lateral may be beneficial. Electronically signed by James Coello 12/31/2019 5:39 AM
[2019-12-31 06:07] LABS: INR 0.93; PROTIME 12.5 Seconds (11.0-16.0)
[2019-12-31 06:08] LABS: PTT 30.1 Seconds (22.3-41.8)
--- NOTE | 2019-12-31 06:16 | HISTORY AND PHYSICAL ---
CHIEF COMPLAINT: Chest pain. HISTORY OF PRESENT ILLNESS: This is a 54-year-old -[place] female who has a past medical history of SVT dilated nonischemic cardiomyopathy I believe with an ejection fraction of 32%, hypertension, diabetes, GERD and hyperlipidemia. She comes in tonight with chest pain that started during work. She did not particularly get short of breath with the pain. She did not have any nausea or vomiting and it stayed substernal and did not radiate into her neck, back or jaw. She received nitroglycerin by the EMS and an aspirin with mild relieve with the Nitro patch in the emergency room. She was pain free during my interview. Dr. Edwards was spoken to who requested a VQ scan for an elevated D-dimer. Will start the patient on a Heparin drip and place her in ICU for further evaluation and treatment. PAST MEDICAL HISTORY: Peptic ulcer disease, previous GI bleed; all else her HPI. PREVIOUS SURGICAL HISTORY: Cholecystectomy, left ankle surgery, breast reduction. SOCIAL HISTORY: No tobacco, alcohol or illicit drugs. FAMILY HISTORY: Positive for diabetes and coronary artery disease. ALLERGIES: Metformin, causing swelling. HOME MEDICATIONS: A list of home medications is unavailable at this time. Order was placed for nursing to reconcile home medications with the pharmacy and place in the computer. These will be restarted when appropriate. REVIEW OF SYSTEMS: Fourteen-point review of systems conducted with the patient. Pertinent positives listed above in the HPI. All other systems reviewed and found to be negative. PHYSICAL EXAMINATION: VITAL SIGNS: Temperature 98, pulse 72, respirations 20, blood pressure 176/109, oxygen saturation 98% on room air. GENERAL: Pleasant 54-year-old -[place] female lying in the ER stretcher. She is alert and oriented times 3. She is not having chest pain at this time. She is in no acute distress. HEENT: Head is atraumatic, normocephalic. Pupils equal, round and reactive to light. Extraocular eye movement is intact. Sclerae are anicteric. Conjunctiva is pink. Oral mucosa is moist. NECK: Supple. No JVD. No thyromegaly. Trachea is midline. No cervical lymphadenopathy. CARDIAC: S1, S2 appreciated. No murmurs, gallops, rubs. Her chest was tender to palpation. LUNGS: Clear to auscultation bilaterally. No rhonchi, wheezes, rales. Symmetric rise and fall with respirations. ABDOMEN: Soft, nondistended, nontender. Bowel sounds present in all 4 quadrants. Normoactive, no pulsatile mass or organomegaly. EXTREMITIES: No clubbing, cyanosis or edema. Two-plus pedal pulses bilaterally. GENITOURINARY: No bladder distention. Patient voids. Otherwise deferred. NEUROLOGICAL: She is alert and oriented times 3. No focal motor deficits. Otherwise nonfocal examination. DIAGNOSTIC DATA: Chest x-ray shows cardiomegaly. Mild increased pulmonary vascular congestion. EKG shows sinus rhythm with inferior infarct that was not present on last EKG. LABORATORY DATA: WBC 10.27. Hemoglobin 11.6. Hematocrit 37.7. Platelet count 287. D-dimer 1.04. Sodium 139. Potassium 3.8. Chloride 102. Carbon dioxide 23. BUN 39. Creatinine 1.8. Glucose 124. Troponin 135. Urine unremarkable. ASSESSMENT: 1. Non-ST elevation myocardial infarction. 2. Rule out pulmonary embolism. 3. Diabetes mellitus, type 2, now insulin dependent. 4. Chronic kidney disease, stage 3. 5. History of peptic ulcer disease. 6. Hyperlipidemia. PLAN: Will trend cardiac enzymes. Consult Cardiology. NPO at this time. Will start patient on atorvastatin 40 mg daily. Will restart her home medications once they are reconciled. Ordered VQ scan to rule out PE. Will go ahead and start the patient on a Heparin drip. Will give Protonix 40 mg b.i.d. for history of PE. Sliding scale insulin. Fingerstick blood sugars. Check hemoglobin A1c. Check a direct lipid. Further recommendations per patient clinical course. Dictated by MISSY Porras for Etienne Evans MD cc: MISSY Porras MD Independent exam and history done by at bedside. Discussed the above plan of care with PHERESIS SPECIALIST. [place]
--- NOTE | 2019-12-31 07:35 | Diag Imaging Result Doc PS360 ---
EXAM: LUNG SCAN / VQ 12/31/2019 HISTORY: CP TECHNIQUE: Ventilation/perfusion lung scan, 42 mCi technetium 99m DTPA aerosol and 6.2 mCi of technetium 99m MAA intravenously. COMMENT: There is no evidence of ventilation/perfusion mismatch and no perfusion defects are present. IMPRESSION: Normal study. Electronically signed by Truong Hightower 12/31/2019 7:33 AM
[2019-12-31] MEDS ORDERED: SODIUM CHLORIDE 0.9% INJ SCH (08:25)
[2019-12-31] MEDS ORDERED: ZOFRAN IV PRN (08:25)
[2019-12-31] MEDS ORDERED: TYLENOL PO PRN (08:25)
[2019-12-31] MEDS ORDERED: ASPIRIN PO SCH (09:00)
[2019-12-31] MEDS ORDERED: PROTONIX IV SCH (09:00)
--- NOTE | 2019-12-31 09:20 | EKG Report ---
Test Performed on : 12/31/2019 08:57:20 AM Test Reason : cp Blood Pressure : / mmHG Vent. Rate : 059 BPM Atrial Rate : 059 BPM P-R Int : 242 ms QRS Dur : 088 ms QT Int : 474 ms P-R-T Axes : 021 -10 076 degrees QTc Int : 469 ms Sinus bradycardia. with 1st degree AV block. Nonspecific T wave abnormality Prolonged QT Abnormal ECG When compared with ECG of 31-DEC-2019 01:55, (Unconfirmed) MS interval has increased Criteria for Inferior infarct are no longer present Confirmed by David Mulligan MD ([id number]) on 01/01/2020 6:18:09 PM
[2019-12-31] MEDS: NITROGLYCERIN TOP SCH ×3 (09:43→21:32)
[2019-12-31] MEDS: LIPITOR PO SCH (09:44)
[2019-12-31] MEDS: HUMALOG SUBQ SCH ×4 (09:57→21:33)
[2019-12-31 10:19] LABS: HEMOGLOBIN A1C 6.4 % (4.8-6.0)
--- NOTE | 2019-12-31 11:49 | CONSULTATION ---
DATE OF CONSULTATION: 12/31/2019 IMPRESSION: 1. Chest pain atypical for myocardial ischemia. 2. Very mild nonspecific elevation in troponin on presentation with subsequent troponin decreasing. 3. Nonischemic cardiomyopathy. Most recent evaluation in May 2019 with stress myocardial perfusion imaging revealed no evidence of inducible myocardial ischemia. Left ventricular ejection fraction at that time was 40% to 45%. Previous coronary angiography in the past negative for coronary disease. She also had a previous negative coronary CT study several years ago. 4. Abnormal D-dimer. Ventilation-perfusion lung scan reportedly negative. 5. Hypertension. 6. Hyperlipidemia. 7. Obesity. 8. Type 2 diabetes mellitus. RECOMMENDATIONS: 1. Followup serial cardiac enzymes and check CPK with isoenzymes. 2. Venous Doppler study of the lower extremities to complete rule out of venous thromboembolic process. 3. Given very atypical nature of chest symptoms and fairly recent noninvasive cardiac evaluation, if no convincing evidence of ongoing myocardial ischemia, would allow patient to go home and consider followup coronary CT study as an outpatient with her primary ferruler, Dr. Edwards. 4. For now continue to manage supraventricular tachyarrhythmias with rate control measures. She has not been interested in ablation in the past, but may reconsider this. HISTORY: This 54-year-old -[place] female with past history of nonischemic cardiomyopathy, supraventricular tachyarrhythmias, hypertension, hyperlipidemia, obesity, type 2 diabetes mellitus was admitted to emergency room last night with chest pain. She works at [employer], which is a fairly physical and stressful job. She relates that around midday she became lightheaded and felt weak. She ate some food and felt some improvement. After she got home, she started to have some left-sided chest discomfort which she characterizes rather vaguely. This was about 2 hours after getting home. Discomfort was not pleuritic nor positional. She took some Gas- X and discomfort persisted. She exercised on her exercise bike, and this did not seem to help either. With persistent chest discomfort that was getting worse, she called 911 and was brought to the emergency room by ambulance. Her chest discomfort has slowly faded and is still present now in very low-grade fashion. Total duration of discomfort is several hours. PAST MEDICAL HISTORY: 1. Nonischemic cardiomyopathy with left ventricular ejection fraction as low as around 30%, but most recent noninvasive evaluation in May 2019 indicated left ejection fraction of 40% to 45% with no evidence of inducible myocardial ischemia. Previous coronary angiography several years ago negative and previous coronary CT angiography also negative in the past. 2. History of paroxysmal supraventricular tachyarrhythmias. She was managed with amiodarone for a period of time, but is no longer taking this. She is currently on rate control. Consideration was given to possible ablation, but she opted not to pursue this. 3. Hypertension. 4. Hyperlipidemia. 5. Type 2 diabetes mellitus. 6. Obesity. 7. Gastroesophageal reflux disease. PAST SURGICAL HISTORY: Includes cholecystectomy, unspecified left ankle surgery, and breast reduction surgery. ALLERGIES: She is allergic or intolerant to metformin. MEDICATIONS PRIOR TO ADMISSION: As listed. SOCIAL HISTORY: She works at [employer], which is a fairly stressful and physical job for her. She works probably 13 days out of 14. She may drink 1/2pint of liquor on her off day. She smokes occasional marijuana. She has not smoked marijuana in more than 1 week. FAMILY HISTORY: Negative for premature coronary disease. REVIEW OF SYSTEMS: Pulmonary: Negative for cough or wheezing. Gastrointestinal: Noncontributory. Constitutional: Noncontributory. Other Systems: The remainder of review of systems negative/noncontributory with 14 total systems reviewed. PHYSICAL EXAMINATION: General: Reveals an obese middle-aged female in no distress. Vital Signs: Blood pressure 151/85, heart rate 61. HEENT: Extraocular movements intact. Mucous membranes moist. Neck: Supple without jugular venous distention. No carotid bruits. Chest: Tender to palpation in the left anterior chest. Chest is clear to auscultation bilaterally. Cardiac: Exam reveals a regular rate and rhythm without appreciable murmur, rub, or gallop. Abdomen: Soft. Bowel sounds normal. Extremities: Without edema. Neurologic: Reveals her to be alert and fully oriented. Speech is fluent. She moves all 4 extremities equally well. Skin: Warm and dry. Psychiatric: Exam reveals her mood to be appropriate. PERTINENT DATA: A 12-lead EKG demonstrates sinus bradycardia with first-degree AV block and nonspecific T-wave abnormality. LABORATORY DATA: Includes a white blood cell count 10.75, hematocrit 38.4, hemoglobin 12.2, platelet count 279,000. Sodium 142, potassium 3.7, chloride 101, carbon dioxide 29, BUN 23, creatinine 2, glucose 141, CPK 327. Initial troponin T high sensitivity 135 with followup troponin high sensitivity 50. cc: Eleazar Ventura MD
[2019-12-31] MEDS: COREG PO SCH ×2 (12:12→21:32)
[2019-12-31] MEDS: CARDIZEM CD PO SCH (12:12)
[2019-12-31] MEDS: HYZAAR 50/12.5 MG PO SCH (12:30)
[2019-12-31 12:42] LABS: CK INDEX 0.9 (0.0-2.5); CK-MB 2.83 ng/mL (0.0-5.0)
--- NOTE | 2019-12-31 14:30 | PROGRESS NOTE ---
DATE: 12/31/2019 Patient's chest discomfort improving. Did have mildly elevated D-dimer which is likely related to her kidney dysfunction but V/Q scan was performed which was unremarkable. Not really any significant lower extremity edema, but after discussion with Cardiology, going ahead and getting lower extremity Dopplers to completely rule out clot. Patient's chest pain is markedly reproducible with significant tenderness along the left sternal border. Suspect costochondritis. Would usually suggest ibuprofen or other NSAID but given the patient's diabetes, kidney disease, history of peptic ulcers, and elevated troponin, that is likely unwise. We will stick with Tylenol for symptomatic treatment. Discussed with Cardiology. They want to obtain above- mentioned ultrasounds and watch her overnight but if no significant issue presents itself, then we will likely be able to be discharged tomorrow. Initial troponin was mildly elevated at 135, but has trended down to 50. Does not appear to be acute coronary syndrome. Otherwise continue home medications and monitor.
[2019-12-31] MEDS: ISORDIL PO SCH ×2 (14:41→21:41)
[2019-12-31 14:45] LABS: UR AMPHETAMINES QUAL NONE DETECTED (NONE DETECT); UR BARBITUATES QUAL NONE DETECTED (NONE DETECT); UR BENZODIAZEPIN QUAL NONE DETECTED (NONE DETECT); UR CANNABINOIDS QUAL PRESUMPTIVE POSITIVE (NONE DETECT); UR COCAINE QUAL NONE DETECTED (NONE DETECT); UR METHADONE QUAL NONE DETECTED (NONE DETECT); UR OPIATES QUAL NONE DETECTED (NONE DETECT); UR OXYCODONE QUAL NONE DETECTED (NONE DETECT); UR PCP QUAL NONE DETECTED (NONE DETECT)
[2019-12-31] MEDS: PROTONIX PO SCH (21:32)
[2020-01-01] MEDS: NITROGLYCERIN TOP SCH ×2 (02:49→08:27)
[2020-01-01] MEDS: HUMALOG SUBQ SCH ×2 (06:18→11:36)
[2020-01-01 07:14] LABS: BASO# 0.04 X1000 (0.0-0.2); BASO% 0.6 % (0.0-0.8); EOS# 0.29 X1000 (0.0-0.7); EOS% 4.1 % (0.0-10.0); HEMOGLOBIN 11.1 g/dL (12.0-16.0); IMM GRAN# 0.02 X1000 (0.0-0.04); IMM GRAN% 0.3 % (0.0-0.5); LYMPH# 1.61 X1000 (1.2-3.4); LYMPH% 22.8 % (20.5-51.1); MCH 29.6 PG (27-31); MCHC 30.8 g/dL (33-37); MONO# 0.79 X1000 (0.11-0.59); MONO% 11.2 % (1.7-9.3); MPV 10.1 FL (7.4-10.4); NEUT# 4.31 X1000 (1.4-6.5); PLT 282 X1000 (130-400); RBC 3.75 XMIL (4.2-5.4); RDW 14.2 % (11.5-14.5); WBC 7.06 X1000 (4.8-10.8)
[2020-01-01 07:47] LABS: CALCIUM 9.6 mg/dL (8.8-10.2); CREATININE 1.9 mg/dL (0.5-0.9); POTASSIUM 3.7 mmol/L (3.5-5.1)
[2020-01-01] MEDS: LIPITOR PO SCH (08:25)
[2020-01-01] MEDS: HYZAAR 50/12.5 MG PO SCH (08:26)
[2020-01-01] MEDS: COREG PO SCH (08:26)
[2020-01-01] MEDS: ISORDIL PO SCH (08:26)
[2020-01-01] MEDS: PROTONIX PO SCH (08:26)
[2020-01-01] MEDS: CARDIZEM CD PO SCH (08:26)
[2020-01-01] MEDS ORDERED: ASPIRIN EC PO SCH (09:00)
[2020-01-01 11:27] VITALS: BP 159/95
--- NOTE | 2020-01-02 08:35 | DISCHARGE SUMMARY ---
ADMISSION DATE: 12/31/2019 DISCHARGE DATE: 01/01/2020 CONSULTS: Cardiology, Eleazar Ventura MD. DISCHARGE DIAGNOSES: 1. Chest pain, likely costochondritis. 2. History of supraventricular tachycardia. 3. Slightly elevated D-dimer. 4. Chronic kidney disease 3B. 5. Diabetes mellitus. 6. Hyperlipidemia. 7. Elevated troponin. HOSPITAL COURSE: Patient presented initially with complaints of chest pain just left of center. She was given aspirin and nitroglycerin in the ER with some relief. On exam, the patient's pain was markedly reproducible with significant tenderness to palpation along the left sternal border. Her EKG was unremarkable, but initial high sensitivity troponin was mildly elevated at 135, so Cardiology was involved. D-dimer was also found to be mildly elevated at 1, so a V/Q scan was obtained, which showed no evidence of pulmonary embolism. Troponins were trended and did trend down to approximately 50 where they stayed. No cardiac events were noted on monitoring overnight. Lower extremity ultrasounds were obtained with final read pending at the time of discharge, but preliminarily they were unremarkable. The patient's pain improved with conservative measures with Tylenol. Given the patient's clinical picture most consistent with costochondritis and mildly elevated troponin which trended down in the setting of significant chronic kidney disease, it was thought that she did not have any acute coronary syndrome. She was discharged home to follow up with her PCP and Cardiology. Given her history of peptic ulcer disease, chronic kidney disease stage 3B, and coronary artery disease, NSAIDs were not recommended for her. We recommend that she take Tylenol for her likely costochondritis. Her other medical issues were stable on this hospitalization. DISCHARGE VITAL SIGNS: Temperature 98.1 degrees, pulse 74, respirations 18, blood pressure 159/95, and O2 saturation 94% on room air. DISCHARGE DIET: Cardiac, renal, and diabetic. DISCHARGE MEDICATIONS: Diltiazem, clonidine, gabapentin, glimepiride, Isordil, Januvia, Lipitor, losartan, Zyrtec, hydralazine, Coreg, DuoNeb, Lasix, and as previously prescribed and Tylenol 650 every 6 hours as needed. FOLLOWUP AND PLAN: The patient is discharging home with Tylenol p.r.n. for likely costochondritis, to follow up with PCP and Cardiology. TIME SPENT: Greater than 30 minutes spent arranging discharge and counseling.
--- NOTE | 2020-01-02 20:36 | Extremity Venous Study ---
PROCEDURE NAME: Venous U/S Bilateral Legs - 12/31/2019 REQUEST PRACTITIONER: SHAUNNA Fletcher READING PHYSICIAN: Yakov Mcmillan MD GROUND HOST/HOSTESS: Mirta INDICATIONS: Rule out DVT. FINDINGS: The deep and superficial veins of both lower extremities were imaged throughout their course. They are compressible, patent and without thrombus. INTERPRETATION: No deep vein thrombosis or supraventricular tachycardia of either lower extremity. This is unchanged from the prior study on 03/18/2019. cc: MD Shannon Mcallister PA
== END 2020-01-01 13:13 | disposition home or self-care (01) | DRG 206 ==
LOC: SUPCPDRO → ED 01:40 → SUATTDRO 01:41 → ICU 01:41 → 4N 17:09
PROVIDERS: ATTEND Internal Medicine